=== PATIENT | male | born 1945 | race Caucasian/White ===

== ENCOUNTER 2019-08-11 12:54 | Inpatient (IN) ==
[2019-08-11] MEDS ORDERED: 0.9 % Sodium Chloride 1,000 ML IVC ONE ×2 (13:33→14:13)
[2019-08-11] MEDS ORDERED: *HR* Metoprolol 5 MG/5 ML VIAL IVP ONE (13:35)
[2019-08-11 13:55] LABS: Basophils # 0.1 K/mcL (0.0-0.2); Basophils % 0.7 %; Eosinophils # 0.1 K/mcL (0.0-0.6); Eosinophils % 0.7 %; Hematocrit 42.9 % (37.5-50.1); Hemoglobin 14.4 g/dL (12.9-16.9); Immature Granulocytes % 0.2 % (0-4); Lymphocytes # 2.8 K/mcL (0.6-4.6); Mean Corpuscular HGB Conc 33.6 g/dL (31.6-35.5); Mean Corpuscular Hemoglobin 33.2 pg (28.0-33.3); Mean Corpuscular Volume 98.8 fL (83.0-100.0); Mean Platelet Volume 11.6 fL (9.4-12.4); Monocytes # 0.7 K/mcL (0.0-1.3); Monocytes % 7.8 %; Neutrophils # 4.8 K/mcL (1.6-8.9); Platelet Count 174 K/mcL (140-400); Red Blood Count 4.34 M/mcL (4.19-5.50); Red Cell Distribution Width 16.3 % (11.5-14.5); Segmented Neutrophils % 57.6 %; White Blood Count 8.4 K/mcL (4.3-11.1)
[2019-08-11 14:17] LABS: BUN/Creatinine Ratio 31 (6-26); Blood Urea Nitrogen 34 mg/dL (8-23); Calcium 9.2 mg/dL (8.6-10.3); Carbon Dioxide 24 mEq/L (23-29); Chloride 105 mEq/L (98-107); Glucose 87 mg/dL (70-105); Osmolality,Calculated 295 (280-300); Potassium 4.3 mEq/L (3.5-5.1); Sodium 139 mEq/L (136-145); eGFR For African Americans > 60 (> 60); eGFR For Non-African Americans > 60 (> 60)
[2019-08-11 14:24] LABS: Thyroid Stimulating Hormone 2.183 mcIU/mL (0.340-5.600)
[2019-08-11] MEDS ORDERED: Isovue-370 500 ML BOTTLE IVP ONE (14:25)
--- NOTE | 2019-08-11 15:39 | Emergency Department Note ---
Disposition Clinical Impression: Lung mass Atrial flutter Qualifiers: Atrial flutter type: unspecified Qualified Code(s): I48.92 - Unspecified atrial flutter Disposition: Admitted As Inpatient Condition: Fair Referrals: Steve Casey MD [Primary Care Provider] - Forms: ED Satisfaction Letter Time of Disposition: 16:31 General Adult HPI - General Chief complaint: ED Arrhythmia/Palpitations Stated complaint: abnormal EKG Time Seen by Provider: 08/11/19 13:23 Source: patient Limitations: no limitations Nursing Notes Reviewed: Yes Vital Signs Reviewed: Yes - History of Present Illness HPI Narrative: 73-year-old male since emergency room for elevated heart rate. Patient had gone to his doctor today with concerns for some possible sinus infection. They noticed him to be extremely tachycardic and sent to the ER. He has no history of any A. fib or any a flutter. He has no history of cardiac disease. No history DVT or PE. He denies any other complaints at this time. He denies any palpitations or chest pain or any shortness of breath. No long travels in a car plane recently. Pain Scale: 0 - Related Data Home Medications Medication Instructions Recorded Confirmed Aspirin [Lo-Dose Aspirin EC] 81 mg PO DAILY 08/11/19 08/11/19 Fluticasone Propionate [Flovent 50 mcg IH DAILY 08/11/19 08/11/19 Diskus] Lisinopril [Zestril] 10 mg PO DAILY 08/11/19 08/11/19 Loratadine [Claritin] 10 mg PO DAILY 08/11/19 08/11/19 Montelukast [Singulair] 10 mg PO DAILY 08/11/19 08/11/19 Polyethylene Glycol [Polyox 1 gm MC DAILY 08/11/19 08/11/19 [id number]] Simvastatin [Zocor] 40 mg PO HS 08/11/19 08/11/19 Tizanidine HCl [Zanaflex] 2 mg PO TID 08/11/19 08/11/19 Vitamin B Complex/Folic Acid 0.4 mg PO DAILY 08/11/19 08/11/19 [Super B Maxi Complex Caplet] Allergies Allergy/AdvReac Type Severity Reaction Status Date / Time No Known Allergies Allergy Verified 08/11/19 13:49 All systems ED: reviewed and negative except as stated. Constitutional: Reports: as per HPI. Denies: fever ENT ED: Reports: congestion Cardiovascular: Reports: as per HPI Respiratory: Reports: as per HPI Gastrointestinal: Reports: as per HPI Genitourinary: Reports: as per HPI Musculoskeletal: Reports: as per HPI Integumentary: Reports: as per HPI Neurological: Reports: as per HPI Psychiatric: Reports: as per HPI Endocrine: Reports: as per HPI Past Medical History - Past Medical History Medical history: Reports: hyperlipidemia, hypertension Psychiatric history: Reports: no psych history - Social History Smoking Status: Current every day smoker Alcohol use: Reports: heavy Drug use: Reports: none Physical Exam - General Limitations: no limitations General appearance: alert, in no apparent distress - Head Head exam: atraumatic, normocephalic - Neck Neck exam: Present: normal inspection - Chest Chest inspection: Present: normal inspection - Respiratory Respiratory exam: Present: normal lung sounds bilaterally - Cardiovascular Cardiovascular exam: Present: normal rhythm, tachycardia - Abdominal Exam Abdominal exam: Present: soft, Non-Tender, normal bowel sounds - Extremities Exam Extremities exam: Present: normal inspection. Absent: tenderness - Expanded Lower Extremity Exam Hip/Pelvis exam: Present: normal inspection - Neurological Exam Neurological exam: Present: alert, oriented X3 - Psychiatric Psychiatric exam: Present: normal affect, normal mood - Skin Skin exam: Present: warm, dry, intact Course Vital Signs Temperature 98.1 F 08/11/19 13:19 Pulse Rate 162 08/11/19 13:19 Respiratory Rate 18 08/11/19 13:19 Blood Pressure 116/89 08/11/19 13:19 O2 Sat by Pulse Oximetry 97 08/11/19 13:19 Temperature 98.1 F 08/11/19 13:19 Pulse Rate 153 08/11/19 15:42 Respiratory Rate 18 08/11/19 15:42 Blood Pressure 119/90 08/11/19 15:42 O2 Sat by Pulse Oximetry 96 08/11/19 15:42 Oxygen Delivery Oxygen Delivery Room Air Medical Decision Making - MDM Narrative Medical decision making narrative: Patient did not respond any 5 mg of Lopressor. Heart rate remained elevated. His blood pressure did drop. We have given him some IV fluids. Troponin was slightly elevated as well as a very high d-dimer. CT of the chest showed no evidence of PE however he does have a right infrahilar mass that is consistent and concerning for lung cancer as a primary site. The mass is approximately 3.5 x 3 cm and seems to be encasing part of the bronchus as well as the segmental pulmonary artery in that region. I did consult with cardiothoracic surgery who will see the patient in consultation. The hospitalist has accepted the patient. We will start him on a heparin drip and Cardizem drip. He did not respond well to the IV Lopressor. This sort of dropped his blood pressure that he is now responded to after fluids. He has no active chest pain. Patient is a history of smoking. CT also shows evidence of emphysema. - Medical Records Medical records reviewed: Yes I reviewed the patient's medical records. - Lab Data Lab results reviewed: Yes I reviewed the patient's lab results. Result diagrams: 08/11/19 13:33 08/11/19 13:33 Lab Results 08/11/19 08/11/19 08/11/19 Range/Units 13:33 13:33 13:33 WBC 8.4 (4.3-11.1) K/mcL RBC 4.34 (4.19-5.50) M/mcL Hgb 14.4 (12.9-16.9) g/dL Hct 42.9 (37.5-50.1) % MCV 98.8 (83.0-100.0) fL MCH 33.2 (28.0-33.3) pg MCHC 33.6 (31.6-35.5) g/dL RDW 16.3 H (11.5-14.5) % Plt Count 174 (140-400) K/mcL MPV 11.6 (9.4-12.4) fL Immature Gran % 0.2 (0-4) % Seg Neutrophils % 57.6 % Lymphocytes % 33.0 % Monocytes % 7.8 % Eosinophils % 0.7 % Basophils % 0.7 % Neutrophils # 4.8 (1.6-8.9) K/mcL Lymphocytes # 2.8 (0.6-4.6) K/mcL Monocytes # 0.7 (0.0-1.3) K/mcL Eosinophils # 0.1 (0.0-0.6) K/mcL Basophils # 0.1 (0.0-0.2) K/mcL D-Dimer 4349 H (0-500) ng/mLFEU Sodium 139 (136-145) mEq/L Potassium 4.3 (3.5-5.1) mEq/L Chloride 105 (98-107) mEq/L Carbon Dioxide 24 (23-29) mEq/L BUN 34 H (8-23) mg/dL Creatinine 1.09 (0.70-1.30) mg/dL Est GFR ( Amer) > 60 (> 60) Est GFR (Non-Af Amer) > 60 (> 60) BUN/Creatinine Ratio 31 H (6-26) Glucose 87 (70-105) mg/dL Calculated Osmolality 295 (280-300) Calcium 9.2 (8.6-10.3) mg/dL Magnesium 2.0 (1.6-2.6) mg/dL Troponin I (< 0.04) ng/mL TSH 2.183 (0.340-5.600) mcIU/mL 08/11/19 Range/Units 13:33 WBC (4.3-11.1) K/mcL RBC (4.19-5.50) M/mcL Hgb (12.9-16.9) g/dL Hct (37.5-50.1) % MCV (83.0-100.0) fL MCH (28.0-33.3) pg MCHC (31.6-35.5) g/dL RDW (11.5-14.5) % Plt Count (140-400) K/mcL MPV (9.4-12.4) fL Immature Gran % (0-4) % Seg Neutrophils % % Lymphocytes % % Monocytes % % Eosinophils % % Basophils % % Neutrophils # (1.6-8.9) K/mcL Lymphocytes # (0.6-4.6) K/mcL Monocytes # (0.0-1.3) K/mcL Eosinophils # (0.0-0.6) K/mcL Basophils # (0.0-0.2) K/mcL D-Dimer (0-500) ng/mLFEU Sodium (136-145) mEq/L Potassium (3.5-5.1) mEq/L Chloride (98-107) mEq/L Carbon Dioxide (23-29) mEq/L BUN (8-23) mg/dL Creatinine (0.70-1.30) mg/dL Est GFR ( Amer) (> 60) Est GFR (Non-Af Amer) (> 60) BUN/Creatinine Ratio (6-26) Glucose (70-105) mg/dL Calculated Osmolality (280-300) Calcium (8.6-10.3) mg/dL Magnesium (1.6-2.6) mg/dL Troponin I 0.06 H* (< 0.04) ng/mL TSH (0.340-5.600) mcIU/mL - Radiology Data Radiology results reviewed: Yes I reviewed the patient's radiology results. - EKG Data EKG #1 EKG attestation: Yes I reviewed and interpreted this EKG. EKG results narrative: Rate of 162. Questionable a flutter versus sinus tachycardia. OR 64. QRS 143. QTC 544. No ST segment abnormalities. Critical Care Time Critical Care Time: Yes Total Critical Care Time: 45 Attestation: Critical care time spent in consultation with cardiothoracic surgery as well as hospitalist and cardiac management
[2019-08-11] MEDS ORDERED: Heparin 25,000 UNIT/250 ML D5W 25,000 UNIT/250 ML IV.SOLN IVC SCH (16:30)
[2019-08-11] MEDS ORDERED: *HR* Heparin 5,000 UNIT/ML VIAL IVP PRN ×2 (16:30)
[2019-08-11] MEDS ORDERED: *HR* Heparin 5,000 UNIT/ML VIAL IVP ONE (16:30)
--- NOTE | 2019-08-11 16:54 | Internal Med History&Physical ---
Date of Encounter: 08/11/19 Time of Encounter: 16:32 Internal Medicine - H&P: HPI Chief complaint: Tachycardia Admitted From: Emergency Dept History of present illness: Gerardo Whittaker is a 73 M w hx HTN, HLD, COPD, smoker, who presents from PCP office for tachycardia. Patient went to PCP office today for concern for sinus problems. States he went to a family reunion 8 days ago and spent most of the day outside. He's been told he has COPD and is always a bit SOB with exertion, but noticed he was a bit more SOB than usual at the reunion. He says he also began to have sinus pressure behind his eyes, with nasal congestion and dripping, but he also says he's been lightheaded in the last week. He says his PCP started claritin and singulair along with flonase, but at follow up appointment today he had a fast heart rate and was sent to ED. In the ED, pt vitals T98.1, HR 160, RR 18, SBP 100-110s, satting 95+% on RA. ECG shows regular narrow complex tachycardia HR 160. CXR unremarkable. Labs notable for WBC 8, Hb 14, Plt 175, Cr 1.1, trop 0.06, D-dimer 4400. CTPE negative for embolism but shows R infrahilar mass suspicious for malignancy. Patient given NS 2L bolus, lopressor 5 ivp x1, and started on cardizem gtt. Past medical, surgical, social, and family histories reviewed and updated as below. Last surgery was hip replacement 2007, prior to which he had LHC without need for stent. Lifelong 1-1.5ppd smoker. No FHx SC or CVA. Past Med Surg Social Fam HX - Past Medical History Medical history: hyperlipidemia, hypertension Psychiatric history: no psych history - Social History Smoking Status: Current every day smoker Alcohol use: heavy Drug use: none Internal Medicine - H&P: Meds Aspirin [Lo-Dose Aspirin EC] 81 mg PO DAILY 08/11/19 [History] Fluticasone Propionate Nasal [Flonase] 50 mcg NS DAILY 08/11/19 [History] Lisinopril [Zestril] 10 mg PO DAILY 08/11/19 [History] Loratadine [Claritin] 10 mg PO DAILY 08/11/19 [History] Montelukast [Singulair] 10 mg PO DAILY 08/11/19 [History] Polyethylene Glycol 3350 [MiraLAX] 17 gm PO DAILY 08/11/19 [History] Simvastatin [Zocor] 40 mg PO HS 08/11/19 [History] Tizanidine HCl [Zanaflex] 2 mg PO TID PRN 08/11/19 [History] Vitamin B Complex [Balanced B-50] 1 each PO DAILY 08/11/19 [History] Allergy/AdvReac Type Severity Reaction Status Date / Time No Known Allergies Allergy Verified 08/11/19 13:49 All Systems PM: A 10-system review of systems was performed and is negative for pertinent findings except as documented above in the HPI. - Constitutional Vitals: Temp Pulse Resp BP Pulse Ox 98.1 F 153 18 119/90 96 08/11/19 13:19 08/11/19 15:42 08/11/19 15:42 08/11/19 15:42 08/11/19 15:42 Exam: General: NAD, good eye contact, relatively well appearing Head: Atraumatic, normocephalic. Face symmetric Eyes: EOMI, sclerae anicteric ENT: Mucous membranes moist. Normal oral mucosa. Trachea midline. Thoracic: No visible chest wall deformities. Normal breath sounds b/l, no wheezing or crackles Cardio: Normal S1 and S2, regular rate but very tachycardic Abdomen: Soft, nontender, nondistended. Extremities: Warm, well perfused. DP pulses 2+ b/l. No clubbing, cyanosis. No edema Skin: Intact. No rashes, bruises, or ulcers Neuro: Awake, fully oriented. Good memory, concentration, attention. Speech fluent. CN II-XII grossly intact. Strength 5/5 in b/l UE and LE Internal Med - H&P Results - Labs CBC & Chem 7: 08/11/19 16:30 08/11/19 13:33 Labs: Short CBC 08/11/19 Range/Units 13:33 WBC 8.4 (4.3-11.1) K/mcL Hgb 14.4 (12.9-16.9) g/dL Hct 42.9 (37.5-50.1) % Plt Count 174 (140-400) K/mcL Neutrophils # 4.8 (1.6-8.9) K/mcL BMP 08/11/19 13:33 Sodium 139 Potassium 4.3 Chloride 105 Carbon Dioxide 24 BUN 34 H Creatinine 1.09 Glucose 87 Calcium 9.2 Cardiac Enzymes 08/11/19 Range/Units 13:33 Troponin I 0.06 H* (< 0.04) ng/mL - Impressions ITS Impressions Chest X-Ray 08/11/19 13:45 IMPRESSION: Minimal bibasilar airspace disease, likely atelectasis in the absence of clinical signs of pneumonia. D/ / Estefani Luna MD / Estefani Luna MD Interpreting Provider: Estefani Luna MD Chest CTA 08/11/19 15:45 IMPRESSION: 1. No evidence of pulmonary embolism 2. No acute process demonstrated 3. Right infrahilar mass concerning for primary pulmonary malignancy 4. Pulmonary emphysema D/ / Keaton Finley MD / Keaton Finley MD Interpreting Provider: Keaton Finley MD - Summary of Assessment and Plan Summary of Assessment and Plan: Gerardo Whittaker is a 73 M w hx HTN, HLD, COPD, smoker, who p/w regular tachycardia concerning for SVT. SVT: regular around 155-160 concerning for AFL w 2:1 block, no response to single lopressor dose but did have hypotension - continue diltiazem gtt, currently at 5/hr w HR still 150s and SBP is now 130s so will increase gtt - hep gtt - TTE if HR improves Lung mass: - Onc consult Elevated trop: likely 2/2 demand from tachycardia - trend trops COPD: emphysema on CT, not on home inhalers or home O2 HTN: home lisinopril 10 HLD: hold simvastatin while on dilt, home ASA Allergies: home claritin, singulair Smoker: nicotine replacement offered, cessation advised PPx: lovenox Tele: yes Activity: up ad david FEN: regular, no MIVF Lines: PIV Consults: Cardio Code: Full Dispo: obs for SVT eval and management at this time and will need outpatient follow up arranged for lung mass, anticipate 1-2 days, will be homegoing
[2019-08-11 17:12] LABS: Hematocrit 37.8 % (37.5-50.1); Mean Corpuscular HGB Conc 33.6 g/dL (31.6-35.5); Mean Corpuscular Hemoglobin 33.7 pg (28.0-33.3); Mean Corpuscular Volume 100.3 fL (83.0-100.0); Mean Platelet Volume 11.3 fL (9.4-12.4); Platelet Count 150 K/mcL (140-400); Red Blood Count 3.77 M/mcL (4.19-5.50); Red Cell Distribution Width 16.3 % (11.5-14.5); White Blood Count 7.5 K/mcL (4.3-11.1)
[2019-08-11 17:15] LABS: Hemoglobin 12.7 g/dL (12.9-16.9)
[2019-08-11 17:20] LABS: INR 0.9; Prothrombin Time 10.4 Seconds (9.4-12.1)
[2019-08-11] MEDS ORDERED: Acetaminophen 325 MG TABLET PO PRN (17:43)
[2019-08-11] MEDS ORDERED: Ondansetron 4 MG/2 ML VIAL IVP PRN (17:43)
[2019-08-11] MEDS ORDERED: Naloxone 0.4 MG/ML INJ IVP PRN (17:43)
[2019-08-12] MEDS ORDERED: Amiodarone Premix 150 MG/100 ML BAG IVPB ONE (00:39)
[2019-08-12] MEDS ORDERED: Amiodarone Premix 360 MG/200 ML BAG IVC ONE (00:39)
[2019-08-12 01:08] LABS: Hematocrit 35.7 % (37.5-50.1); Mean Corpuscular HGB Conc 33.6 g/dL (31.6-35.5); Mean Corpuscular Hemoglobin 33.7 pg (28.0-33.3); Mean Corpuscular Volume 100.3 fL (83.0-100.0); Mean Platelet Volume 11.9 fL (9.4-12.4); Platelet Count 149 K/mcL (140-400); Red Blood Count 3.56 M/mcL (4.19-5.50); Red Cell Distribution Width 16.1 % (11.5-14.5); White Blood Count 9.1 K/mcL (4.3-11.1)
[2019-08-12 01:22] LABS: BUN/Creatinine Ratio 33 (6-26); Blood Urea Nitrogen 32 mg/dL (8-23); Calcium 8.5 mg/dL (8.6-10.3); Carbon Dioxide 19 mEq/L (23-29); Chloride 106 mEq/L (98-107); Chol/HDL Ratio 1.8 (0-4.9); Cholesterol 157 mg/dL (< 200); Glucose 83 mg/dL (70-105); HDL Cholesterol 85 mg/dL (40-59); LDL Cholesterol,Calculated 64 mg/dL (0-99); Magnesium 1.7 mg/dL (1.6-2.6); Osmolality,Calculated 296 (280-300); Potassium 4.6 mEq/L (3.5-5.1); Sodium 140 mEq/L (136-145); Triglycerides 42 mg/dL (< 150); eGFR For African Americans > 60 (> 60); eGFR For Non-African Americans > 60 (> 60)
[2019-08-12 01:32] LABS: Troponin I 0.05 ng/mL (< 0.04)
[2019-08-12] MEDS ORDERED: Ondansetron 4 MG/2 ML VIAL IVP PRN (06:11)
[2019-08-12] MEDS ORDERED: Naloxone 0.4 MG/ML INJ IVP PRN (06:11)
[2019-08-12] MEDS ORDERED: *HR* Heparin 5,000 UNIT/ML VIAL IVP PRN (06:11)
[2019-08-12] MEDS ORDERED: Acetaminophen 325 MG TABLET PO PRN (06:11)
[2019-08-12] MEDS: Amiodarone Premix 360 MG/200 ML BAG IVC SCH ×2 (07:37→19:53)
[2019-08-12] MEDS: Heparin 25,000 UNIT/250 ML D5W 25,000 UNIT/250 ML IV.SOLN IVC SCH ×2 (07:38→12:26)
--- NOTE | 2019-08-12 08:05 | Internal Med Progress Note ---
Hospitalist Progress Note - Encounter Date of Encounter: 08/12/19 Time of Encounter: 08:02 - Subjective Interval History: Gerardo Whittaker is a 73 M w hx HTN, HLD, COPD, smoker, who presents from PCP office for tachycardia. Patient went to PCP office today for concern for sinus problems. States he went to a family reunion 8 days ago and spent most of the day outside. He's been told he has COPD and is always a bit SOB with exertion, but noticed he was a bit more SOB than usual at the reunion. He says he also began to have sinus pressure behind his eyes, with nasal congestion and dripping, but he also says he's been lightheaded in the last week. He says his PCP started claritin and singulair along with flonase, but at follow up appointment today he had a fast heart rate and was sent to ED. In the ED, pt vitals T98.1, HR 160, RR 18, SBP 100-110s, satting 95+% on RA. ECG shows regular narrow complex tachycardia HR 160. CXR unremarkable. Labs notable for WBC 8, Hb 14, Plt 175, Cr 1.1, trop 0.06, D-dimer 4400. CTPE negative for embolism but shows R infrahilar mass suspicious for malignancy. Patient given NS 2L bolus, lopressor 5 ivp x1, and started on cardizem gtt. Past medical, surgical, social, and family histories reviewed and updated as below. Last surgery was hip replacement 2007, prior to which he had LHC without need for stent. Lifelong 1-1.5ppd smoker. No FHx NM or CVA. 08/12: Pt has persistent heart rate in the 150s. He denies any chest pain or shortness of breath. No nausea or vomiting. No fevers or chills. Patient was placed on an amiodarone drip overnight as well as a heparin drip. EKG shows what looks like a flutter with 2:1 conduction. Other than that mentioned above a 10 point review of systems is negative - Exam Vitals: Temp Pulse Resp BP Pulse Ox 97.9 F 153 20 126/90 95 08/12/19 07:43 08/12/19 08:00 08/12/19 08:00 08/12/19 08:00 08/12/19 08:00 Exam: General: NAD, good eye contact, relatively well appearing, nonntoxic Head: Atraumatic, normocephalic. Face symmetric Eyes: EOMI, sclerae anicteric ENT: Mucous membranes moist. Normal oral mucosa. Trachea midline. Thoracic: No visible chest wall deformities. Normal breath sounds b/l, no wheezing or crackles Cardio: Normal S1 and S2, tachycardic Abdomen: Soft, nontender, nondistended. Extremities: Warm, well perfused. DP pulses 2+ b/l. No clubbing, cyanosis. No edema Skin: Intact. No rashes, bruises, or ulcers Neuro: Awake, fully oriented. Good memory, concentration, attention. Speech fluent. CN II-XII grossly intact. Strength 5/5 in b/l UE and LE - Summary of Assessment and Plan Summary of Assessment and Plan: Gerardo Whittaker is a 73 M w hx HTN, HLD, COPD, smoker, who p/w regular tachycardia concerning for SVT. SVT: regular around 155-160 concerning for AFL w 2:1 block, no response to single lopressor dose but did have hypotension -cardizem drip off - hep gtt - TTE if HR improves 08/12: Patient has persistent tachycardia, with what appears to be atrial flutter with a 2-1 conduction. Now on amiodarone drip as well as a heparin drip. Cardiology will be consulted- I discussed the case with them Blood pressure remains stable Lung mass: - Onc consult Elevated trop: likely 2/2 demand from tachycardia - trend trops COPD: emphysema on CT, not on home inhalers or home O2 -stable HTN: home lisinopril 10 -will hold ROBERT for now in case poss procedure HLD: hold simvastatin while on dilt, home ASA Allergies: home claritin, singulair Smoker: nicotine replacement offered, cessation advised PPx: -on heparin drip Tele: yes Activity: up ad david FEN: regular, no MIVF Lines: PIV Consults: Cardio Code: Full Dispo: obs for SVT eval and management at this time and will need outpatient follow up arranged for lung mass, anticipate 1-2 days, will be homegoing - Time Spent with Patient Total time spent is greater than 50% in coordination of care (as documented) at patient's floor/unit and/or counseling patient: Greater than 35 minutes Internal Medicine: Result - Labs CBC & Chem 7: 08/12/19 00:26 08/12/19 00:26 Labs: Short CBC 08/11/19 08/11/19 08/12/19 Range/Units 13:33 16:30 00:26 WBC 8.4 7.5 9.1 (4.3-11.1) K/mcL Hgb 14.4 12.7 L D 12.0 L (12.9-16.9) g/dL Hct 42.9 37.8 35.7 L (37.5-50.1) % Plt Count 174 150 149 (140-400) K/mcL Neutrophils # 4.8 (1.6-8.9) K/mcL BMP 08/11/19 08/12/19 13:33 00:26 Sodium 139 140 Potassium 4.3 4.6 Chloride 105 106 Carbon Dioxide 24 19 L BUN 34 H 32 H Creatinine 1.09 0.98 Glucose 87 83 Calcium 9.2 8.5 L Cardiac Enzymes 08/11/19 08/12/19 Range/Units 13:33 00:26 Troponin I 0.06 H* 0.05 H* (< 0.04) ng/mL - ABG Interpretation ABG results: PT/INR, D-dimer PT 10.4 Seconds (9.4-12.1) 08/11/19 16:30 D-Dimer 4349 ng/mLFEU (0-500) H 08/11/19 13:33 - Impressions Impressions Chest X-Ray 08/11/19 13:45 IMPRESSION: Minimal bibasilar airspace disease, likely atelectasis in the absence of clinical signs of pneumonia. D/ / Estefani Luna MD / Estefani Luna MD Interpreting Provider: Estefani Luna MD Chest CTA 08/11/19 15:45 IMPRESSION: 1. No evidence of pulmonary embolism 2. No acute process demonstrated 3. Right infrahilar mass concerning for primary pulmonary malignancy 4. Pulmonary emphysema D/ / Keaton Finley MD / Keaton Finley MD Interpreting Provider: Keaton Finley MD Consult Discharge Plan - Plan Referrals: Steve Casey MD [Primary Care Provider] -
[2019-08-12] MEDS ORDERED: Aspirin Enteric Coated 81 MG Tablet PO SCH (09:00)
[2019-08-12] MEDS ORDERED: Fluticasone Propionate Nasal 50 MCG/SPRAY BOTTLE NS SCH (09:00)
[2019-08-12] MEDS ORDERED: Loratadine 10 MG TABLET PO SCH (09:00)
[2019-08-12] MEDS: Loratadine 10 MG TABLET PO SCH (10:15)
[2019-08-12] MEDS: Aspirin Enteric Coated 81 MG Tablet PO SCH (10:15)
[2019-08-12] MEDS: Fluticasone Propionate Nasal 50 MCG/SPRAY BOTTLE NS SCH (10:15)
[2019-08-12] MEDS ORDERED: Glycopyrrolate 0.2 MG/ML VIAL ONE (13:57)
--- NOTE | 2019-08-12 14:07 | Cardiology Consult Note ---
<Dante Guido M - Last Filed: 08/12/19 15:27> Date of Encounter: 08/12/19 Time of Encounter: 10:00 Assessment and Plan (1) SVT (supraventricular tachycardia) Current Visit: Yes Status: Acute The patient presents with acute onset SVT, HR 150's concerning for Atrial flutter with 2:1 block. Patient is currently asymptomatic and hemodynamically stable. Was started on Cardizem gtt with no improvement. Given one dose IV lopressor and no improvement in HR but he did develop transient hypotension. Therefore, patient was switched to amiodorone gtt, still no improvement in HR but BP has been stable. Patient denies CP/palpitations/SOB at this time. Troponins were mildly elevated on admission, 0.06-->0.05, likely demand ischemia in setting of SVT. Etiology of acute onset SVT not responsive to medications likely 2/2 incidental finding on CTPE of a lung mass. Plan: Continue Heparin drip NPO for Cardioversion today Continue Amiodorone gtt for now Continue Telemetry and closely monitor BP/HR Discussion w patient/family: The assessment and plan as outlined above was discussed with the patient and/or family members who expressed understanding and agreement. All questions were answered. Thank you for involving us in the care of your patient. Please call with any questions. History of Present Illness History of present illness: Mr. Whittaker is a 73 year old male w hx HTN, HLD, COPD, smoker, who p/w regular tachycardia concerning for SVT. Patient presents from his PCP who was seeing the patient regarding recent sinus problems and SOB. Patient has baseline SOB on exertion 2/2 COPD but reports it has recently been worse than usual. Was additionally complaining of sinus pressure/pain and nasal congestion in addition to some lightheadedness earlier in the week. Patient was started on claritin, singulair, and flonase, but at follow up appointment last night he had rapid heart rate and was sent to the ED. In the ED, pt vitals T98.1, HR 160, RR 18, SBP 100-110s, satting 95+% on RA. ECG shows regular narrow complex tachycardia HR 160. CXR unremarkable. Labs notable for WBC 8, Hb 14, Plt 175, Cr 1.1, trop 0.06, D-dimer 4400. CTPE negative for embolism but shows R infrahilar mass suspicious for malignancy. Patient given NS 2L bolus, lopressor 5 ivp x1, and started on cardizem gtt. The patients HR was still uncontrolled on the cardizem drip. IV lopressor x1 was used w/o repsonse in HR but did develop some hypotension. The patient was switched to Amiodorone gtt and still no repsonse in HR. The rhythm is concerning for Atrial flutter with 2:1 block given HR stable around 150. Patient did have incidental finding of a lung mass which could have precipitated his conversion to SVT. Past Med Surg Social Fam HX - Past Medical History Medical history: hyperlipidemia, hypertension Psychiatric history: no psych history - Social History Smoking Status: Current every day smoker Alcohol use: heavy Drug use: none Medications and Allergies Aspirin [Lo-Dose Aspirin EC] 81 mg PO DAILY 08/11/19 [History] Fluticasone Propionate Nasal [Flonase] 50 mcg NS DAILY 08/11/19 [History] Lisinopril [Zestril] 10 mg PO DAILY 08/11/19 [History] Loratadine [Claritin] 10 mg PO DAILY 08/11/19 [History] Montelukast [Singulair] 10 mg PO DAILY 08/11/19 [History] Polyethylene Glycol 3350 [MiraLAX] 17 gm PO DAILY 08/11/19 [History] Simvastatin [Zocor] 40 mg PO HS 08/11/19 [History] Tizanidine HCl [Zanaflex] 2 mg PO TID PRN 08/11/19 [History] Vitamin B Complex [Balanced B-50] 1 each PO DAILY 08/11/19 [History] Allergy/AdvReac Type Severity Reaction Status Date / Time No Known Allergies Allergy Verified 08/11/19 13:49 All Systems Review: The remainder of the systems were reviewed and are negative Physical Examination Vital Signs, Last 4 Hours Temp Pulse Resp BP Pulse Ox 08/12/19 13:00 153 20 131/102 95 08/12/19 12:00 156 24 141/110 93 08/12/19 11:53 98.3 F 08/12/19 11:00 154 24 114/81 93 Other: General: NAD, good eye contact, relatively well appearing Head: Atraumatic, normocephalic. Face symmetric Eyes: EOMI, sclerae anicteric ENT: Mucous membranes moist. Normal oral mucosa. Trachea midline. Thoracic: No visible chest wall deformities. Normal breath sounds b/l, no wheezing or crackles Cardio: Normal S1 and S2, tachycardic but regular rhythm Abdomen: Soft, nontender, nondistended. Extremities: Warm, well perfused. DP pulses 2+ b/l. No clubbing, cyanosis. No edema Skin: Intact. No rashes, bruises, or ulcers Neuro: no focal deficits, strength/sensation intact, oriented and alert Results 08/12/19 00:26 08/12/19 00:26 Lab Results 08/11/19 08/11/19 08/11/19 13:33 13:33 13:33 WBC Hgb Hct Plt Count INR D-Dimer 4349 H Sodium 139 Potassium 4.3 Chloride 105 Carbon Dioxide 24 BUN 34 H Creatinine 1.09 Glucose 87 Calcium 9.2 Magnesium 2.0 Troponin I 0.06 H* B-Natriuretic Peptide TSH 2.183 08/11/19 08/11/19 08/12/19 16:30 16:30 00:26 WBC 7.5 9.1 Hgb 12.7 L D 12.0 L Hct 37.8 35.7 L Plt Count 150 149 INR 0.9 D-Dimer Sodium Potassium Chloride Carbon Dioxide BUN Creatinine Glucose Calcium Magnesium Troponin I B-Natriuretic Peptide TSH 08/12/19 08/12/19 00:26 00:26 WBC Hgb Hct Plt Count INR D-Dimer Sodium 140 Potassium 4.6 Chloride 106 Carbon Dioxide 19 L BUN 32 H Creatinine 0.98 Glucose 83 Calcium 8.5 L Magnesium 1.7 Troponin I 0.05 H* B-Natriuretic Peptide 296 H TSH Consult Discharge Plan - Plan Referrals: Steve Casey MD [Primary Care Provider] - < A - Last Filed: 08/12/19 21:05> Date of Encounter: 08/12/19 - Attending Attestation I have personally performed a face to face evaluation on this patient. I have reviewed and agree with the documented findings and care plan as documented by the resident. History and Exam by me shows: 73 y/o pleasant gentleman with history of HTN, HLD, COPD, smoker admitted for atrial flutter and found to have a right lung mass on CT scan AAOX3 in NAD at the bedside Hemodynamically stable Cardiopulmonary exam revealed S1, S2, no murmur; clear lungs Rhythm reviewed - atrial flutter at around 150/min Echo pending Impression/plan: Atrial flutter with 2:1 block not responsive to amio drip and cardizem -therapeutic on IV heparin -recommend SAHIL/DCCV Thanks for the consult, please call with questions. Huber Nunn MD [facility] Assessment and Plan Discussion w patient/family: The assessment and plan as outlined above was discussed with the patient and/or family members who expressed understanding and agreement. All questions were answered. Thank you for involving us in the care of your patient. Please call with any questions. History of Present Illness History of present illness: Mr. Whittaker is a 73 year old male All Systems Review: The remainder of the systems were reviewed and are negative Physical Examination Vital Signs, Last 4 Hours Pulse Resp BP Pulse Ox 08/12/19 18:00 149 22 108/90 95 08/12/19 17:00 149 24 119/97 92 Results 08/12/19 00:26 08/12/19 00:26 Lab Results 08/12/19 08/12/19 08/12/19 00:26 00:26 00:26 WBC 9.1 Hgb 12.0 L Hct 35.7 L Plt Count 149 Sodium 140 Potassium 4.6 Chloride 106 Carbon Dioxide 19 L BUN 32 H Creatinine 0.98 Glucose 83 Calcium 8.5 L Magnesium 1.7 Troponin I 0.05 H* B-Natriuretic Peptide 296 H
--- NOTE | 2019-08-12 14:33 | Oncology Inp Consult Note ---
<Vicky Adhikari - Last Filed: 08/12/19 13:55> Date of Encounter: 08/12/19 Time of Encounter: 12:00 Assessment and Plan (1) Lung mass Status: Acute Assessment and plan: Right infrahilar mass 3.5 x 3.0 cm encasing the medial basilar segmental pulmonary artery and bronchus, narrowing the bronchus, and partially encasing the lower lobe bronchus. Plan: Recommend biopsy once stable from cardiac standpoint. Cardiology on board: appreciate recommendations - Data of Consult Patient: new to practice Consult date: 08/11/19 Requesting Physician: Dwight Diaz Primary Care Provider: Steve Casey MD - Consult Narrative Reason for consult: newly identified infrahilar mass History of present illness: Gerardo Whittaker, a 73yo male, was directed to the ED from his PCP office due to elevated heart rate. He had gone for follow-up for a sinus infe ction, but was noted to have HR 150-160s. CTA chest in the ED noted a infrahilar mass. He is currently admitted to the ICU and is on amiodarone and heparin drips. His cardiac monitoring notes HR 150s. He notes that he began with facial edema, shortness of breath, and sinus infection eight days ago. He denies productive cough, chest pain, or palpitations. He denies weight loss, but his notes decreased appetite and early satiety for the past one to two weeks. Oncology was consulted on 08/11/19 for the right infrahilar mass 3.5 x 3.0 cm encasing the medial basilar segmental pulmonary artery and bronchus, narrowing the bronchus, and partially encasing the lower lobe bronchus. Medical history: HTN HLD COPD Social history: , lives in [place] 3 children: 1 in [place], 1 in [place], 1 near [place] Retired from [employer] Smokes 1-1.5 ppd cigarettes Drinks 3 alcoholic beverages (whiskey) per day Denies illicit drug use Past Med Surg Social Fam HX - Past Medical History Medical history: hyperlipidemia, hypertension Psychiatric history: no psych history - Past Surgical History Surgical History: hip replacement (right hip ) - Social History Smoking Status: Current every day smoker Alcohol use: heavy Drug use: none Medications and Allergies Aspirin [Lo-Dose Aspirin EC] 81 mg PO DAILY 08/11/19 [History] Fluticasone Propionate Nasal [Flonase] 50 mcg NS DAILY 08/11/19 [History] Lisinopril [Zestril] 10 mg PO DAILY 08/11/19 [History] Loratadine [Claritin] 10 mg PO DAILY 08/11/19 [History] Montelukast [Singulair] 10 mg PO DAILY 08/11/19 [History] Polyethylene Glycol 3350 [MiraLAX] 17 gm PO DAILY 08/11/19 [History] Simvastatin [Zocor] 40 mg PO HS 08/11/19 [History] Tizanidine HCl [Zanaflex] 2 mg PO TID PRN 08/11/19 [History] Vitamin B Complex [Balanced B-50] 1 each PO DAILY 08/11/19 [History] Allergy/AdvReac Type Severity Reaction Status Date / Time No Known Allergies Allergy Verified 08/11/19 13:49 Constitutional: Present: night sweats. Absent: chills, fatigue, fever(s), weight loss Nose, mouth and throat: Present: nasal congestion Cardiovascular: Present: rapid heart rate. Absent: chest pain, edema Respiratory: Present: cough, dyspnea Genitourinary: Absent: urinary frequency, urinary hesitancy, urinary incontinence, urinary urgency Neurological: Absent: numbness, tingling Hematologic/Lymphatic: Absent: easy bleeding, easy bruising, lymphadenopathy Oncology - Exam - Constitutional General appearance: cooperative, no acute distress - Head Head exam: Present: normal inspection, normocephalic - Respiratory Respiratory exam: Present: decreased breath sounds. Absent: wheezes - Cardiovascular Cardiovascular exam: Present: tachycardia - GI/Abdominal GI/Abdominal exam: Present: normal bowel sounds, soft. Absent: tenderness - Extremities Exam Extremities exam: Present: normal inspection - Neurological Exam Neurological exam: Present: alert, oriented X3 - Psychiatric Psychiatric exam: Present: normal affect, normal mood - Skin Skin exam: Present: dry, pallor Oncology Inpatient Results Labs: Laboratory Results - last 24 hr 08/11/19 08/11/19 08/12/19 16:30 16:30 00:26 WBC 7.5 9.1 RBC 3.77 L 3.56 L Hgb 12.7 L D 12.0 L Hct 37.8 35.7 L MCV 100.3 H 100.3 H MCH 33.7 H 33.7 H MCHC 33.6 33.6 RDW 16.3 H 16.1 H Plt Count 150 149 MPV 11.3 11.9 PT 10.4 INR 0.9 Heparin Anti-Xa, Unfract 0.00 L Sodium Potassium Chloride Carbon Dioxide BUN Creatinine Est GFR ( Amer) Est GFR (Non-Af Amer) BUN/Creatinine Ratio Glucose Calculated Osmolality Calcium Magnesium Troponin I B-Natriuretic Peptide Triglycerides Cholesterol LDL Cholesterol, Calc VLDL Cholesterol, Calc HDL Cholesterol Cholesterol/HDL Ratio 08/12/19 08/12/19 08/12/19 00:26 00:26 00:26 WBC RBC Hgb Hct MCV MCH MCHC RDW Plt Count MPV PT INR Heparin Anti-Xa, Unfract 0.79 H Sodium 140 Potassium 4.6 Chloride 106 Carbon Dioxide 19 L BUN 32 H Creatinine 0.98 Est GFR ( Amer) > 60 Est GFR (Non-Af Amer) > 60 BUN/Creatinine Ratio 33 H Glucose 83 Calculated Osmolality 296 Calcium 8.5 L Magnesium 1.7 Troponin I 0.05 H* B-Natriuretic Peptide 296 H Triglycerides 42 Cholesterol 157 LDL Cholesterol, Calc 64 VLDL Cholesterol, Calc 8 HDL Cholesterol 85 H Cholesterol/HDL Ratio 1.8 08/12/19 08:12 WBC RBC Hgb Hct MCV MCH MCHC RDW Plt Count MPV PT INR Heparin Anti-Xa, Unfract 0.70 Sodium Potassium Chloride Carbon Dioxide BUN Creatinine Est GFR ( Amer) Est GFR (Non-Af Amer) BUN/Creatinine Ratio Glucose Calculated Osmolality Calcium Magnesium Troponin I B-Natriuretic Peptide Triglycerides Cholesterol LDL Cholesterol, Calc VLDL Cholesterol, Calc HDL Cholesterol Cholesterol/HDL Ratio Chest X-Ray 08/11/19 13:45 IMPRESSION: Minimal bibasilar airspace disease, likely atelectasis in the absence of clinical signs of pneumonia. D/ / Estefain Luna MD / Estefani Luna MD Interpreting Provider: Estefani Luna MD Chest CTA 08/11/19 15:45 IMPRESSION: 1. No evidence of pulmonary embolism 2. No acute process demonstrated 3. Right infrahilar mass concerning for primary pulmonary malignancy 4. Pulmonary emphysema D/ / Keaton Finley MD / Keaton Finley MD Interpreting Provider: Keaton Finley MD Consult Discharge Plan - Plan Referrals: Steve Casey MD [Primary Care Provider] - Inpatient Charges Provider: Dr. Kyra Stevens <YohanandreasAmy nogueira - Last Filed: 08/12/19 16:50> Date of Encounter: 08/12/19 Assessment and Plan (1) Lung mass Status: Acute - Data of Consult Requesting Physician: Dwight Diaz Primary Care Provider: Steve Casey MD - Consult Narrative History of present illness: PAtient with recent hx sinus infection with tachycardia, SVT, underwent CT imaging that shows rt infrahilar mass concerning for malignancy. He denied cough with expectoration or fevers/w t loss prior to coming to hospital. Currently cardiology is Rx A flutter. Once he is stable, he will need bronch procedure/outpatient PET imaging. WE reviewed imaging results and possible diagnosis in detail with patient. Will continue to follow. I examined this patient and my medical decision-making was reviewed with the Advanced Practice Nurse, Vicky Adhikari. I agree with the documented findings, disposition and treatment plan as described except to the extent set forth below. Inpatient Charges Provider: Dr. Kyra Stevens Consult - Inpatient: [id number]
[2019-08-12] MEDS ORDERED: Lidocaine Viscous Oral Soln 15 ML SOLUTION MM PRN (14:35)
[2019-08-12] MEDS ORDERED: 0.9 % Sodium Chloride 500 ML IVC ONE (14:35)
[2019-08-12] MEDS: *HR* Midazolam HCl 5 MG/5 ML VIAL IVP PRN ×6 (15:15→15:40)
[2019-08-12] MEDS: *HR* FentaNYL (PF) 100 MCG/2 ML VIAL IVP PRN ×5 (15:15→15:40)
--- NOTE | 2019-08-12 15:50 | Event Note ---
Date of Encounter: 08/12/19 Time of Encounter: 15:40 - Cardiology Event Note Reviewed with Dr. Villasenor. Unable to complete SAHIL guided DCCV, patient was difficult to sedate. Plan for TTE guided DCCV in AM with anesthesia. Discussed and reviewed with Dr. Nunn. Will make NPO after MN except medications.
--- NOTE | 2019-08-12 16:08 | Electrocardiograph Report ---
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
--- NOTE | 2019-08-12 16:17 | Electrocardiograph Report ---
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
--- NOTE | 2019-08-12 16:19 | Electrocardiograph Report ---
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
[2019-08-12] MEDS ORDERED: *HR* LORazepam 2 MG/ML VIAL IVP PRN ×3 (16:22)
--- NOTE | 2019-08-12 17:25 | Event Note ---
Date of Encounter: 08/12/19 Time of Encounter: 17:20 Pt was unable to be cardioverted. Patient's stated that he drinks heavily, patient does not want discuss this. We are not sure when his last drink was. It does appear he is having mild alcohol withdrawals, and his atrial flutter may be related to "holiday heart". Patient is now on CIWA protocol, may need a sitter. If his symptoms get worse will consider Precedex.
[2019-08-12] MEDS: Thiamine (B-1) 100 MG, Folic Acid 1 MG, MVI, adult with vitamin K 10 ML in 0.9 % Sodi... IVPB SCH (18:40)
[2019-08-13] MEDS ORDERED: Amiodarone Premix 360 MG/200 ML BAG IVC SCH (06:30)
--- NOTE | 2019-08-13 07:28 | Internal Med Progress Note ---
Hospitalist Progress Note - Encounter Date of Encounter: 08/13/19 Time of Encounter: 07:27 - Subjective Interval History: Pt remains exertionally dyspneic but otherwise denies symptoms including no lightheadedness, dizziness, CP, palpitations, cough, N/V, leg swelling. Also denies tremors or sweats or hallucinations, does state that he'd sure like to ea t some food and have a drink soon since he's been essentially NPO since Sunday. - Exam Vitals: Temp Pulse Resp BP Pulse Ox 98.0 F 147 24 121/88 95 08/13/19 07:09 08/13/19 07:09 08/13/19 07:09 08/13/19 07:09 08/13/19 07:09 Exam: General: NAD, good eye contact, relatively well appearing, nontoxic Thoracic: Normal breath sounds b/l, no wheezing or crackles Cardio: Normal S1 and S2, regular rate, tachycardic Abdomen: Soft, nontender Extremities: Warm, well perfused. DP pulses 2+ b/l. No edema Skin: Intact. No rashes, bruises, or ulcers Neuro: Awake, fully oriented. Good memory, concentration, attention. Speech fluent. - Summary of Assessment and Plan Summary of Assessment and Plan: Gerardo Whittaker is a 73 M w hx HTN, HLD, COPD, smoker, who p/w regular tach ycardia at 150s concerning for SVT likely AFL 2:1. SVT: regular around 155-160 concerning for AFL w 2:1 block, no response to lopressor or cardizem gtt, and on amio x24h without improvement. Attempted DCCV yesterday but difficulties w sedation. - hep gtt - Cardio following, plan for SAHIL/DCCV w anesthesia today Lung mass: - Onc following, rec biopsy of lung mass after tachycardia controlled, likely while on hep gtt prior to starting po AC Elevated trop: 2/2 demand from tachycardia COPD: emphysema on CT, not on home inhalers or home O2, stable HTN: home lisinopril 10 HLD: hold simvastatin while on dilt, home ASA Allergies: home claritin, singulair Smoker: nicotine replacement offered, cessation advised PPx: hep gtt Tele: yes Activity: up ad david FEN: NPO then after procedure regular diet, stop MIVF Lines: PIV Consults: Cardio, Onc Code: Full Dispo: inpatient for refractory SVT, anticipate 1-2 more days, will be homegoing Internal Medicine: Result - Labs CBC & Chem 7: 08/13/19 08:36 08/13/19 08:36 - ABG Interpretation ABG results: PT/INR, D-dimer PT 10.4 Seconds (9.4-12.1) 08/11/19 16:30 D-Dimer 4349 ng/mLFEU (0-500) H 08/11/19 13:33 - Impressions Impressions Transesophageal w/Cardioversion 08/12/19 14:46 Impressions: Procedure cancelled due to patient agitation. Recommend rescheduling under MAC with Anesthesia guidance. Findings: Consult Discharge Plan - Plan Referrals: Dinora Cyr CNP [Partnered Physician] - (Per the office they will call the patient at home with a follow up appointment) Steve Casey MD [Primary Care Provider] - 08/25/19 2:00 pm
[2019-08-13] MEDS: Amiodarone Premix 360 MG/200 ML BAG IVC SCH ×2 (08:22→21:11)
[2019-08-13] MEDS: Aspirin Enteric Coated 81 MG Tablet PO SCH (08:24)
[2019-08-13] MEDS: Loratadine 10 MG TABLET PO SCH (08:24)
[2019-08-13] MEDS: Fluticasone Propionate Nasal 50 MCG/SPRAY BOTTLE NS SCH ×3 (08:25→19:58)
[2019-08-13 08:47] LABS: Hematocrit 36.3 % (37.5-50.1); Hemoglobin 12.1 g/dL (12.9-16.9); Mean Corpuscular HGB Conc 33.3 g/dL (31.6-35.5); Mean Corpuscular Hemoglobin 33.8 pg (28.0-33.3); Mean Corpuscular Volume 101.4 fL (83.0-100.0); Mean Platelet Volume 11.8 fL (9.4-12.4); Platelet Count 123 K/mcL (140-400); Red Blood Count 3.58 M/mcL (4.19-5.50); Red Cell Distribution Width 16.2 % (11.5-14.5); White Blood Count 9.5 K/mcL (4.3-11.1)
[2019-08-13 09:09] LABS: BUN/Creatinine Ratio 27 (6-26); Blood Urea Nitrogen 24 mg/dL (8-23); Calcium 8.9 mg/dL (8.6-10.3); Carbon Dioxide 21 mEq/L (23-29); Chloride 106 mEq/L (98-107); Glucose 116 mg/dL (70-105); Magnesium 1.6 mg/dL (1.6-2.6); Osmolality,Calculated 293 (280-300); Potassium 4.1 mEq/L (3.5-5.1); Sodium 139 mEq/L (136-145); eGFR For African Americans > 60 (> 60); eGFR For Non-African Americans > 60 (> 60)
--- NOTE | 2019-08-13 10:26 | Cardiology Progress Note ---
<Dante Guido M - Last Filed: 08/13/19 10:23> Date of Encounter: 08/13/19 Time of Encounter: 08:00 Assessment and Plan (1) SVT (supraventricular tachycardia) Current Visit: Yes Status: Acute The patient presents with acute onset SVT, HR 150's concerning for Atrial flutter with 2:1 block. Patient is currently asymptomatic and hemodynamically stable. Was started on Cardizem gtt with no improvement. Given one dose IV lopressor and no improvement in HR but he did develop transient hypotension. Therefore, patient was switched to amiodorone gtt, still no improvement in HR but BP has been stable. Patient denies CP/palpitations/SOB at this time. Troponins were mildly elevated on admission, 0.06-->0.05, likely demand ischemia in setting of SVT. Etiology of acute onset SVT not responsive to medications likely 2/2 incidental finding on CTPE of a lung mass. Patient unable to complete DCCV yesterday d/t agitation in setting of alcohol abuse as reported by . Plan: -Continue Heparin drip -NPO for DCCV today, MAC/Anesthesia support for enhanced sedation -Continue Amiodorone gtt for now -Continue Telemetry and closely monitor BP/HR Discussion w patient/family: The assessment and plan as outlined above was discussed with the patient and/or family members who expressed understanding and agreement. All questions were answered. Thank you for involving us in the care of your patient. Please call with any questions. Subjective Principal diagnosis: Aflutter Interval history: Patient seen and examined at bedside this morning. Patient denies any new or worsening complaints at this time. Denies chest pain, fevers/chills, nausea, diaphoresis. Admits to some continued SOB, has baseline SANDRA but now complains of SOB at rest as well. Patient was unable to complete DCCV yesterday d/t agitation. Turns out, patient has a history of alcohol abuse as reported by . Now on CIWA with sitter. Plan for DCCV with MAC/Anesthesia today, remains in AFlutter with 2:1 block. Objective Vital Signs, Last 4 Hours Temp Pulse Resp BP Pulse Ox 08/13/19 07:09 98.0 F 147 24 121/88 95 Other: General: NAD, good eye contact, relatively well appearing Head: Atraumatic, normocephalic. Face symmetric Eyes: EOMI, sclerae anicteric ENT: Mucous membranes moist. Normal oral mucosa. Trachea midline. Thoracic: No visible chest wall deformities. Normal breath sounds b/l, no wheezing or crackles Cardio: Normal S1 and S2, tachycardic but regular rhythm Abdomen: Soft, nontender, nondistended. Extremities: Warm, well perfused. DP pulses 2+ b/l. No clubbing, cyanosis. No edema Skin: Intact. No rashes, bruises, or ulcers Neuro: no focal deficits, strength/sensation intact, oriented and alert Results 08/13/19 08:36 08/13/19 08:36 Lab Results 08/13/19 08/13/19 08:36 08:36 WBC 9.5 Hgb 12.1 L Hct 36.3 L Plt Count 123 L Sodium 139 Potassium 4.1 Chloride 106 Carbon Dioxide 21 L BUN 24 H Creatinine 0.89 Glucose 116 H Calcium 8.9 Magnesium 1.6 Consult Discharge Plan - Plan Referrals: Dinora Cyr CNP [Partnered Physician] - (Per the office they will call the patient at home with a follow up appointment) Steve Casey MD [Primary Care Provider] - 08/25/19 2:00 pm < A - Last Filed: 08/13/19 19:36> Date of Encounter: 08/13/19 Assessment and Plan Discussion w patient/family: The assessment and plan as outlined above was discussed with the patient and/or family members who expressed understanding and agreement. All questions were answered. Thank you for involving us in the care of your patient. Please call with any questions. Objective Vital Signs, Last 4 Hours Temp Pulse Resp BP Pulse Ox 08/13/19 19:26 97.8 F 147 20 111/80 94 08/13/19 18:52 90/60 08/13/19 18:21 149 112/80 08/13/19 17:00 104/71 08/13/19 16:00 112/86 08/13/19 15:43 98.1 F 147 18 102/86 95 Results 08/13/19 08:36 08/13/19 08:36 Lab Results 08/13/19 08/13/19 08:36 08:36 WBC 9.5 Hgb 12.1 L Hct 36.3 L Plt Count 123 L Sodium 139 Potassium 4.1 Chloride 106 Carbon Dioxide 21 L BUN 24 H Creatinine 0.89 Glucose 116 H Calcium 8.9 Magnesium 1.6 - Attending Attestation I have personally performed a face to face evaluation on this patient. 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 History and Exam by me shows: Was unable to be cardioverted due to poor SAHIL images. Continue rate control with amiodarone and Cardizem drip. Recommend EP consult. GI consult to rule out esophageal varices given alcohol abuse. Thanks for the consult, please call with questions. Huber Nunn MD [facility]
[2019-08-13] MEDS: Heparin 25,000 UNIT/250 ML D5W 25,000 UNIT/250 ML IV.SOLN IVC SCH (10:29)
--- NOTE | 2019-08-13 11:09 | Anesthesia Evaluation PreOp ---
Date of Encounter: 08/13/19 Time of Encounter: 12:30 - Past History Planned Operation: SAHIL with cardioversion Cardiac History: HTN, Hyperlipidemia, Arrhythmia (SVT unresponsive to meds(lopressor, cardiazem and amiodrone)) Pulmonary History: Smoker, COPD, Other (lung mass) ROOFER ASSISTANT History: Denies Any Significant HX Other Medical History: Other (alcoholism) Alcohol Use: heavy Drug use: none Medications and Allergies Aspirin [Lo-Dose Aspirin EC] 81 mg PO DAILY 08/11/19 [History] Fluticasone Propionate Nasal [Flonase] 50 mcg NS DAILY 08/11/19 [History] Lisinopril [Zestril] 10 mg PO DAILY 08/11/19 [History] Loratadine [Claritin] 10 mg PO DAILY 08/11/19 [History] Montelukast [Singulair] 10 mg PO DAILY 08/11/19 [History] Polyethylene Glycol 3350 [MiraLAX] 17 gm PO DAILY 08/11/19 [History] Simvastatin [Zocor] 40 mg PO HS 08/11/19 [History] Tizanidine HCl [Zanaflex] 2 mg PO TID PRN 08/11/19 [History] Vitamin B Complex [Balanced B-50] 1 each PO DAILY 08/11/19 [History] Allergy/AdvReac Type Severity Reaction Status Date / Time No Known Allergies Allergy Verified 08/11/19 13:49 - Meds/Allergy Pre-op Review Medications Reviewed: Yes Allergies Reviewed: Yes Beta Blockers on Current Med List: No Anesthesia Results - Labs 08/13/19 08:36 08/13/19 08:36 - Imaging EKG: report reviewed (ATRIAL FLUTTER WITH RAPID VENTRICULAR RESPONSE ABNORMAL RHYTHM ECG) Anesthesia Exam Selected Entries 08/13/19 07:09 Temperature 98.0 F Pulse Rate 147 Respiratory Rate 24 Blood Pressure 121/88 O2 Sat by Pulse Oximetry 95 Oxygen Delivery Method Nasal Cannula Weight: 95kg - ROOFER ASSISTANT LOC: Oriented ROOFER ASSISTANT Motor: Normal RUE, Normal LUE, Normal RLE, Normal LLE, Normal Face ROOFER ASSISTANT Sensory: Normal: RUE, LUE, RLE, LLE, Face - Cardiac Rhythm: Regular (tachy) - Pulmonary Breath Sounds: bilateral Clear Respiratory Effort: Symmetrical Anesthesia Assess/Plan ASA Score: 4 Level of consciousness: Cooperative, Oriented Anesthetic Plan: MAC Monitoring Plan: Standard Monitors Recovery Plan: Other
[2019-08-13] MEDS ORDERED: *HR* Phenylephrine 10 MG/ML VIAL ONE (11:53)
[2019-08-13] MEDS ORDERED: Lidocaine -MPF 2% 2 ML VIAL ONE (11:59)
[2019-08-13] MEDS ORDERED: 0.9 % Sodium Chloride 500 ML IVC ONE (12:25)
[2019-08-13] MEDS ORDERED: Lidocaine Viscous Oral Soln 15 ML SOLUTION MM PRN (12:25)
[2019-08-13] MEDS ORDERED: Oxymetazoline Nasal SPRAY BOTTLE NS ONE (12:28)
[2019-08-13] MEDS ORDERED: Amiodarone 150 MG in D5% in Water 100 ML IVPB ONE (13:20)
[2019-08-13] MEDS ORDERED: Amiodarone Premix 150 MG/100 ML BAG IVPB ONE (15:00)
--- NOTE | 2019-08-13 15:19 | Event Note ---
Date of Encounter: 08/13/19 Time of Encounter: 12:30 - Cardiology Event Note SAHIL unsuccessful. Dicussed with Dr. Nunn recommends more aggressive rate control. Re-bolus with IV amiodarone. Start IV cardizem. Due to heavy ETOH use there is concern for esophogeal varicies. GI consulted to evaluate prior to retirement AC recommendation.
[2019-08-13] MEDS: Thiamine (B-1) 100 MG, Folic Acid 1 MG, MVI, adult with vitamin K 10 ML in 0.9 % Sodi... IVPB SCH (16:55)
--- NOTE | 2019-08-13 21:33 | Electrocardiograph Report ---
[address] [address] Test Date: 2019-08-13 Pat Name: Gerardo Whittaker Department: 110 Room: 2N06 Gender: M Test Deskman: : 1945 Requested By: Dwight Diaz Order Number: [id number] Reading MD: Siria Villasenor Measurements Intervals [place] Rate: 148 P: 215 WI: 129 QRS: 71 QRSD: 93 T: 71 QT: 299 QTc: 384 Interpretive Statements SINUS TACHYCARDIA, POSSIBLE ATRIAL FLUTTER NONSPECIFIC T-WAVE ABNORMALITY ABNORMAL RHYTHM ECG Electronically Signed On 08-13-2019 21:31:51 EDT by Siria Villasenor
[2019-08-14] MEDS: Aspirin Enteric Coated 81 MG Tablet PO SCH (07:53)
[2019-08-14] MEDS: Loratadine 10 MG TABLET PO SCH (07:53)
--- NOTE | 2019-08-14 08:05 | Internal Med Progress Note ---
Hospitalist Progress Note - Encounter Date of Encounter: 08/14/19 Time of Encounter: 08:00 - Exam Vitals: Temp Pulse Resp BP Pulse Ox 98.4 F 128 18 105/96 92 08/14/19 04:22 08/14/19 04:22 08/14/19 04:22 08/14/19 04:22 08/14/19 00:15 - Summary of Assessment and Plan Summary of Assessment and Plan: Gerardo Whittaker is a 73 M w hx HTN, HLD, COPD, smoker, who p/w regular tachycardia at 150s concerning for SVT likely AFL 2:1. A-Fib/A-Flutter: regular around 150 concerning for AFL w 2:1 block, no response to lopressor or cardizem gtt or amio gtt and cardioversion. Overnight was rebolused w amio and had cardizem resumed, with improvement into the 110-120s. - hep gtt - cardizem gtt - amio gtt - Cardio following Lung mass: - Onc following, rec biopsy of lung mass after tachycardia controlled, likely while on hep gtt prior to starting po AC Concern on SAHIL of esophageal varices: on admission, CT chest did not comment on abnormal liver or varices - RUQ US - Cardio consulted GI Elevated trop: 2/2 demand from tachycardia COPD: emphysema on CT, not on home inhalers or home O2, stable HTN: home lisinopril 10 HLD: hold simvastatin while on dilt, home ASA Allergies: home claritin, singulair Smoker: nicotine replacement offered, cessation advised PPx: hep gtt Tele: yes Activity: up ad david FEN: Regular diet, no MIVF Lines: PIV Consults: Cardio, Onc, GI Code: Full Dispo: inpatient for refractory SVT, anticipate 2-3 more days, will be homegoing Internal Medicine: Result - Labs CBC & Chem 7: 08/13/19 08:36 08/13/19 08:36 Labs: Short CBC 08/13/19 Range/Units 08:36 WBC 9.5 (4.3-11.1) K/mcL Hgb 12.1 L (12.9-16.9) g/dL Hct 36.3 L (37.5-50.1) % Plt Count 123 L (140-400) K/mcL BMP 08/13/19 08:36 Sodium 139 Potassium 4.1 Chloride 106 Carbon Dioxide 21 L BUN 24 H Creatinine 0.89 Glucose 116 H Calcium 8.9 - ABG Interpretation ABG results: PT/INR, D-dimer PT 10.4 Seconds (9.4-12.1) 08/11/19 16:30 D-Dimer 4349 ng/mLFEU (0-500) H 08/11/19 13:33 Consult Discharge Plan - Plan Referrals: Dinora Cyr CNP [Partnered Physician] - (Per the office they will call the patient at home with a follow up appointment) Steve Casey MD [Primary Care Provider] - 08/25/19 2:00 pm
[2019-08-14] MEDS: Amiodarone Premix 360 MG/200 ML BAG IVC SCH ×2 (09:08→21:22)
[2019-08-14] MEDS ORDERED: *HR* Digoxin 0.5 MG/2 ML AMPUL IVP ONE (09:23)
[2019-08-14] MEDS: Heparin 25,000 UNIT/250 ML D5W 25,000 UNIT/250 ML IV.SOLN IVC SCH (09:42)
--- NOTE | 2019-08-14 09:50 | Gastroenterology Consult Note ---
<Carloz Melton - Last Filed: 08/14/19 18:03> Date of Encounter: 08/14/19 Time of Encounter: 09:20 - Assessment and plan (1) Esophageal varices Current Visit: Yes Status: Acute Assessment and plan: there was a concern for esophageal varcies when SAHIL was being performed on the patient. Patient was initially being transferred to [place] today due to refractory A. fib RVR able to cardiovert however patient does want is likely cardiovert this afternoon while awaiting transfer. -To undergo EGD tomorrow morning to rule out presence of esophageal varices. - Time Spent With Patient Total time spent is greater than 50% in coordination of care (as documented) at patient's floor/unit and/or counseling patient: GI History of Present Illness - Data of Consult Requesting Physician: Dwight Diaz - Consult Narrative History of present illness: Mr. Whittaker is a 73 year old male with a past medical history of hypertension, hyperlipidemia, COPD, smoker presented to the hospital because of elevated heart rate. Straw and nephrology was consult because of concerns for esophageal varices Mr. Whittaker is a 73 year old male with a past medical history of hypertension, hyperlipidemia, COPD, smoker presented to the hospital because of elevated heart rate. Patient was found to be in's SVT with heart rate in 150s with concerns for atrial flutter with 2 stool 1 block. She was refractory to Cardizem gtt. and IV Lopressor and was switched to amiodarone GTT Past Med Surg Social Fam HX - Past Medical History Medical history: hyperlipidemia, hypertension Psychiatric history: no psych history - Past Surgical History Surgical History: hip replacement - Social History Smoking Status: Current every day smoker Packs per day: 1.5 Smokeless Tobacco Status: No Alcohol use: heavy Drug use: none Review of Systems: A 10-system review of systems was performed and is negative for pertinent findings except as documented above in the HPI. - Constitutional Vitals: Temp Pulse Resp BP Pulse Ox 98.4 F 144 12 97/52 96 08/14/19 07:30 08/14/19 08:36 08/14/19 08:36 08/14/19 08:36 08/14/19 08:36 Exam: Gen.: Vitals noted. No acute distress. Alert, awake and oriented * [address], [address], and time, well developed, well-nourished resting comfortably in bed. Pleasant. HEENT: oropharynx clear, Normocephalic, atraumatic, MMM Neck: supple, no JVD, no lymphadenopathy, no carotid bruit. Cardiac: RRR, no murmur, +S1/S2, No BLE edema, PMI non-displaced Pulmonary: CTA bilaterally, no wheezes, rales or rhonchi, equal chest expansion, unlabored breathing Abdomen: soft, nontender, BS noted, no guarding, undistended. No organomegaly, no pulsatile masses, Skin: warm and dry, no visible lesions. Feels warm, clammy, no rashes, no lesions, no erythema MSK: ROM not assessed. no joint swelling noted, gait not assessed while in bed. Non tender calf or clubbing, no cyanosis/clubbing/ or edema Neuro: A&O, moves all extremities, no focal deficits, sensation intact Psych: Appropriate mood and behavior, normal speech. Results - Labs CBC & Chem 7: 08/13/19 08:36 08/13/19 08:36 - ABG ABG results: PT/INR, D-dimer PT 10.4 Seconds (9.4-12.1) 08/11/19 16:30 D-Dimer 4349 ng/mLFEU (0-500) H 08/11/19 13:33 Consult Discharge Plan - Plan Referrals: Dinora Cyr CNP [Partnered Physician] - (Per the office they will call the patient at home with a follow up appointment) Steve Casey MD [Primary Care Provider] - 08/25/19 2:00 pm <Ana Camargo - Last Filed: 08/14/19 18:13> Date of Encounter: 08/14/19 Time of Encounter: 13:00 - Time Spent With Patient Total time spent is greater than 50% in coordination of care (as documented) at patient's floor/unit and/or counseling patient: GI History of Present Illness - Data of Consult Requesting Physician: Dwight Diaz - Consult Narrative History of present illness: Mr. Whittaker is a 73 year old male - Constitutional Vitals: Temp Pulse Resp BP Pulse Ox 98.1 F 76 18 129/80 96 08/14/19 16:55 08/14/19 16:55 08/14/19 16:55 08/14/19 16:55 08/14/19 16:55 Results - Labs CBC & Chem 7: 08/13/19 08:36 08/13/19 08:36 - ABG ABG results: PT/INR, D-dimer PT 10.4 Seconds (9.4-12.1) 08/11/19 16:30 D-Dimer 4349 ng/mLFEU (0-500) H 08/11/19 13:33 - Attending Attestation I examined this patient and my medical decision-making was reviewed with the Resident Physician. I agree with the documented findings, disposition and treatment plan as described except to the extent set forth below. Patient seen denies any trouble swallowing. On examination: Currently tachycardic but abdomen is benign. Assessment patient with a history of alcohol abuse and now is concern is for possible varices. He was supposed to be transferred to [place] because of his uncontrolled tachyarrhythmias but now he has converted back to sinus rhythm and transferse has been canceled. ReC; EGD to rule out varices in the morning
[2019-08-14] MEDS ORDERED: *HR* Digoxin 0.5 MG/2 ML AMPUL ONE (10:52)
--- NOTE | 2019-08-14 11:19 | Electrophysiology Consult Note ---
<Noel,Casey R - Last Filed: 08/14/19 11:20> Date of Encounter: 08/14/19 Time of Encounter: 11:15 Assessment and Plan (1) Atrial flutter with rapid ventricular response Status: Acute Presented 08/11 from PCP office in A-Flutter RVR. Found to have perihilar mass--o ncology following. K, Mag, TSH WNL. Heavy ETOH use. Loaded with IV amiodarone, no improvement, attempted SAHIL/DCCV 08/13, but pt did not tolerate attempted SAHIL. Rescheduled yesterday 08/14 with anesthesia, but pt still did not tolerate, suboptimal images on SAHIL. DCCV has not been attempted. Reloaded with IV amiodarone. RVR persists. On cardizem gtt 5mg/hr. HR 140s at bedside. BP marginal. Discussed and reviewed with Dr. Giuseppe Swain. Will load with IV digoxin--total of 1mg. TTE to evaluate structure and function. Recommend transfer to tertiary facility given two unsuccessful SAHIL attempts. Pt needs DCCV in attempt to restore SR. Discussed with hospitalist. [id number] 3 (Age, HTN). High CVA risk. Currently on heparin gtt. Will need assisted AC. GI was consulted given concern of esophageal varices with heavy ETOH use. Discussion w patient/family: The assessment and plan as outlined above was discussed with the patient and/or family members who expressed understanding and agreement. All questions were answered. Thank you for involving us in the care of your patient. Please call with any questions. I will discuss all the above with Dr. Giuseppe Swain and make changes as necessary. History of Present Illness Consult date: 08/14/19 Requesting physician: Cortez Soto Consult reason: A-Flutter RVR History of present illness: Mr. Whittaker is a 73 year old male with PMH of HTN, HLD, COPD, tobacco abuse, ETOH abuse who presents from PCP office 08/11 for tachycardia. Patient went to PCP for sinus problems, found to be A-Flutter RVR and was sent to ED and admitted. Loaded with IV amiodarone, no improvement, attempted SAHIL/DCCV 08/13, but pt did not tolerate attempted SAHIL. Rescheduled yesterday 08/14 with anesthesia, but pt still did not tolerate, suboptimal images on SAHIL. DCCV not attempted. Reloaded with IV amiodarone. RVR persists. On cardizem gtt 5mg/hr. EP consulted for further recs. Past Med Surg Social Fam HX - Past Medical History Medical history: hyperlipidemia, hypertension Psychiatric history: no psych history - Past Surgical History Surgical History: hip replacement - Social History Smoking Status: Current every day smoker Packs per day: 1.5 Smokeless Tobacco Status: No Alcohol use: heavy Drug use: none Medications and Allergies Aspirin [Lo-Dose Aspirin EC] 81 mg PO DAILY 08/11/19 [History] Fluticasone Propionate Nasal [Flonase] 50 mcg NS DAILY 08/11/19 [History] Loratadine [Claritin] 10 mg PO DAILY 08/11/19 [History] Montelukast [Singulair] 10 mg PO DAILY 08/11/19 [History] Polyethylene Glycol 3350 [MiraLAX] 17 gm PO DAILY 08/11/19 [History] Tizanidine HCl [Zanaflex] 2 mg PO TID PRN 08/11/19 [History] Vitamin B Complex [Balanced B-50] 1 each PO DAILY 08/11/19 [History] Apixaban [Eliquis] 5 mg PO BID #60 tablet 08/15/19 [Rx] Amiodarone [Cordarone] 200 mg PO DAILY #30 tablet 08/16/19 [Rx] Diltiazem CD (24hr) [Cardizem CD] 120 mg PO DAILY #30 cap.er.24h 08/16/19 [Rx] Omeprazole [PriLOSEC] 40 mg PO DAILY@0630 #60 capsule.dr 08/16/19 [Rx] Simvastatin [Zocor] 20 mg PO HS #30 tablet 08/16/19 [Rx] Allergy/AdvReac Type Severity Reaction Status Date / Time No Known Allergies Allergy Verified 08/11/19 13:49 All Systems Review: The remainder of the systems were reviewed and are negative - Cardiovascular Cardiovascular: as per HPI Physical Examination Vital Signs, Last 4 Hours Temp Pulse Resp BP Pulse Ox 08/14/19 10:51 144 16 122/94 92 08/14/19 08:36 144 12 97/52 96 08/14/19 07:30 98.4 F 105 14 105/72 96 Vital Signs Temp Pulse Resp BP Pulse Ox 08/14/19 10:51 144 16 122/94 92 08/14/19 08:36 144 12 97/52 96 08/14/19 07:30 98.4 F 105 14 105/72 96 08/14/19 04:22 98.4 F 128 18 105/96 08/14/19 00:34 123 08/14/19 00:15 99.1 F 119 18 91/81 92 08/13/19 20:45 146 08/13/19 19:26 97.8 F 147 20 111/80 94 08/13/19 18:52 90/60 08/13/19 18:21 149 112/80 08/13/19 17:00 104/71 08/13/19 16:00 112/86 08/13/19 15:43 98.1 F 147 18 102/86 95 08/13/19 15:20 102/86 08/13/19 12:21 97.8 F 149 16 115/87 94 08/13/19 11:33 99.0 F 149 20 105/81 94 Intake and Output 08/13/19 08/14/19 08/14/19 23:59 07:59 15:59 Intake Total 671.2 / 1883.4 10 / 418.8 408.8 / 418.8 Output Total 120 / 120 Balance 671.2 / 1683.4 -110 / 298.8 408.8 / 298.8 Intake: IV Fluids 431.2 / 1643.4 10 / 418.8 408.8 / 418.8 Amiodarone Drip Premix 360mg/ 200 / 400 200 / 200 200mL 360 mg In 200 ml @ 0.5 MG /MIN 16.667 mls/hr IVC CONT [facility] Rx#:[id number] Cardizem 50 MG In 0.9 % Sodium 50.0 / 50.0 10 / 50 40 / 50 Chloride 40 ML @ 5 MG/HR 5 mls/ hr IVC .Q10H [facility] Rx#:[id number] Heparin 25,000 UNIT/250 ML D5W 81.2 / 331.2 168.8 / 168.8 25,000 unit In 250 ml @ 14 UNIT /KG/HR 13.526 mls/hr IVC . [id number] [facility] Rx#:[id number] Amiodarone Premix 150mg/100mL 100 / 100 150 mg In 100 ml @ 291.262 mls/ hr IVPB ONCE ONE Rx#:[id number] Oral 240 / 240 Output: Urine 120 / 120 Other: Meal Dinner Percent of Meal Consumed 65% Weight 95 kg Patient Weight 08/14/19 23:59 Weight 95 kg General: Conversant, No Apparent Distress HEENT: Atraumatic, Normocephaly, Mucus Membranes Moist Neck: No JVD, Normal carotid pulses Cardiac: Other (regularly irregular) Lungs: Normal Breath Sounds, No Wheeze, Rales, Rhonchi Neuro: Alert and responsive, No focal deficits noted Abdomen: Soft, Non-Tender Skin: No rashes noted on visualized skin Musculoskeletal: No Chest Wall Tenderness Extremities: No Clubbing, No Cyanosis, No Edema, Normal Pulses Results 08/13/19 08:36 08/13/19 08:36 Active Medications Acetaminophen (Tylenol) 650 mg PO Q6HR PRN PRN Reason: Mild Pain/Fever Stop: 02/10/20 17:44 Aspirin (Aspirin Ec) 81 mg PO DAILY [facility] Stop: 02/11/20 09:01 Last Admin: 08/14/19 07:53 Dose: 81 mg Documented by: Digoxin (Lanoxin) 0.25 mg IVP Q6H [facility] Stop: 08/14/19 21:31 Fluticasone Propionate (Flonase) 50 mcg NS HS [facility]; Protocol Stop: 02/11/20 09:01 Last Admin: 08/13/19 19:58 Dose: 50 mcg Documented by: Folic Acid (Folic Acid) 1 mg PO DAILY [facility] Stop: 02/14/20 09:01 Heparin Sodium (Porcine) (Heparin) 6,800 unit 70 unit/kg (6800 unit) IVP Q6HR PRN PRN Reason: SEE COMMENTS Stop: 02/10/20 16:31 Heparin Sodium (Porcine) (Heparin) 3,400 unit 35 unit/kg (3400 unit) IVP Q6H PRN PRN Reason: SEE COMMENTS Stop: 02/10/20 16:31 Amiodarone HCl/Dextrose (Amiodarone Drip Premix 360mg/200ml) 360 mg in 200 mls @ 16.667 mls/hr IVC CONT [facility] Stop: 02/11/20 00:46 Last Admin: 08/14/19 09:08 Dose: 0.5 mg/min, 16.7 mls/hr Documented by: Heparin Sodium/Dextrose (Heparin 25,000 Unit/250 Ml D5w) 25,000 unit in 250 mls @ 13.526 mls/hr IVC .[id number] [facility]; Protocol Stop: 02/10/20 16:31 Last Admin: 08/14/19 09:42 Dose: 12.11 unit/kg/hr, 11.7 mls/hr Documented by: Thiamine HCl 100 mg/ Folic Acid 1 mg/ Multivitamins 10 ml / Sodium Chloride 511.2 mls @ 85.2 mls/hr IVPB DAILY@1800 [facility] Stop: 08/14/19 23:59 Last Admin: 08/13/19 16:55 Dose: 85.2 mls/hr Documented by: Diltiazem HCl 50 mg/ Sodium (Chloride) 50 mls @ 5 mls/hr IVC .Q10H [facility] Stop: 02/12/20 13:31 Last Admin: 08/14/19 09:00 Dose: 5 mg/hr, 5 mls/hr Documented by: Lidocaine (Lidocaine Viscous Oral Soln) 15 ml MM ONCE PRN PRN Reason: Lubricant of oropharynx Last Admin: 08/13/19 12:50 Dose: 15 ml Documented by: Lisinopril (Zestril) 10 mg PO DAILY [facility]; Protocol Stop: 02/11/20 09:01 Last Admin: 08/14/19 07:52 Dose: 10 mg Documented by: Loratadine (Claritin) 10 mg PO DAILY [facility] Stop: 02/11/20 09:01 Last Admin: 08/14/19 07:53 Dose: 10 mg Documented by: Lorazepam (Ativan) 1 mg IVP Q1H PRN PRN Reason: Alcohol Withdrawal Stop: 02/11/20 16:23 Lorazepam (Ativan) 2 mg IVP Q4HR PRN PRN Reason: CIWA Score of 10-21 Stop: 02/11/20 16:23 Last Admin: 08/12/19 16:43 Dose: 2 mg Documented by: Lorazepam (Ativan) 4 mg IVP Q4HR PRN PRN Reason: CIWA Score of 22-45 Stop: 02/11/20 16:23 Montelukast Sodium (Singulair) 10 mg PO QPM [facility] Stop: 02/11/20 18:01 Last Admin: 08/13/19 16:56 Dose: 10 mg Documented by: Naloxone HCl (Narcan) 0.4 mg IVP Q2MPRN PRN PRN Reason: SEE COMMENTS Stop: 02/10/20 17:44 Ondansetron HCl (Zofran) 4 mg IVP Q8HR PRN PRN Reason: Nausea And Vomiting Stop: 02/10/20 17:44 Polyethylene Glycol (Miralax) 17 gm PO DAILY [facility] Stop: 02/11/20 09:01 Last Admin: 08/14/19 07:53 Dose: Not Given Documented by: Thiamine HCl (Vitamin B-1) 100 mg PO DAILY [facility] Stop: 02/14/20 09:01 Vitamin B Complex/Vit C/Vit E (Stresstab) 1 each PO DAILY [facility] Stop: 02/14/20 09:01 - EKG Interpretation EKG results cardiology: personally reviewed, other (12 hr tele AVG HR 117, A- Flutter) Consult Discharge Plan - Plan Instructions: Atrial Flutter (DC), Chronic Obstructive Pulmonary Disease (DC) Referrals: Rolando Wilhelm MD [Partnered Physician] - Amy Stevens MD [Partnered Physician] - Dinora Cyr CNP [Partnered Physician] - (Per the office they will call the patient at home with a follow up appointment) Ana Camargo MD [Partnered Physician] - Steve Casey MD [Primary Care Provider] - 08/25/19 2:00 pm Prescriptions: Diltiazem CD (24hr) [Cardizem CD] 120 mg PO DAILY #30 cap.er.24h Prescription Printed Amiodarone [Cordarone] 200 mg PO DAILY #30 tablet Prescription Printed Apixaban [Eliquis] 5 mg PO BID #60 tablet Prescription Printed Omeprazole [PriLOSEC] 40 mg PO DAILY@0630 #60 capsule.dr Prescription Printed Simvastatin [Zocor] 20 mg PO HS #30 tablet Prescription Printed Cardiac Rehab - Cardiac Rehab Cardiac Rehab: Phase I consult completed. Patient was educated on why Cardiac Rehabilitation is beneficial to his/her health. Participating in a cardiac rehabilitation can improve the following: strengthen your heart, improve ejection fraction, weight reduction, decrease cholesterol levels, lower blood pressure, lower blood sugar, improve stamina, and enhance self-image. If he/she has any questions, they were instructed to call [facility] at [phone]. <Giuseppe Swain - Last Filed: 08/21/19 14:15> Date of Encounter: 08/21/19 - Attending Attestation I have personally performed a face to face evaluation on this patient. I have reviewed and agree with the care plan. History and Exam by me shows: Would benenfit mostly from SAHIL cardioversion, in the meantime will aggressively rate control. Assessment and Plan Discussion w patient/family: The assessment and plan as outlined above was discussed with the patient and/or family members who expressed understanding and agreement. All questions were answered. Thank you for involving us in the care of your patient. Please call with any questions. History of Present Illness History of present illness: Mr. Whittaker is a 73 year old male All Systems Review: The remainder of the systems were reviewed and are negative Results 08/16/19 02:47 08/16/19 02:47 Cardiac Rehab - Cardiac Rehab Cardiac Rehab: Phase I consult completed. Patient was educated on why Cardiac Rehabilitation is beneficial to his/her health. Participating in a cardiac rehabilitation can improve the following: strengthen your heart, improve ejection fraction, weight reduction, decrease cholesterol levels, lower blood pressure, lower blood sugar, improve stamina, and enhance self-image. If he/she has any questions, they were instructed to call [facility] at [phone].
--- NOTE | 2019-08-14 12:00 | Electrocardiograph Report ---
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
--- NOTE | 2019-08-14 12:49 | Discharge Summary ---
- NOTES TO OUTPATIENT PROVIDER Notes to Outpatient Provider: 73 M smoker w COPD who p/w tachycardia HR 150, ECG showing AFL 2:1, unable to rate control w lopressor or cardizem due to soft pressures, Cardio tried amio bolus+drip x48h without success so attempted SAHIL but could not r/o thrombus and therefore no cardioversion. Transferring for repeat SAHIL/DCCV. Currently on heparin gtt, amio gtt, and cardizem @5. Loaded with Digoxin prior to transfer. Of note, likely cause seen on CT is felt to be new R hilar lung mass encasing medial basilar seg pulm artery & bronchus, and emphysema; consider bronchoscopy/biopsy after rate or rhythm control. Date of Encounter: 08/14/19 Time of Encounter: 12:40 Hospital course: Dear Doctors, I recently had the opportunity to care for this patient during their recent hospital stay at [facility]. Gerardo Whittaker is a 73 M w hx HTN, HLD, COPD, smoker, EtOH abuse, who presented at time of admission from PCP office with regular tachycardia at 150s. In the ED, pt vitals T98.1, HR 160, RR 18, SBP 100-110s, satting 95+% on RA. ECG shows regular narrow complex tachycardia HR 160. CXR unremarkable. Labs notable for WBC 8, Hb 14, Plt 175, Cr 1.1, trop 0.06, D-dimer 4400. CTPE negative for embolism but shows R infrahilar mass suspicious for malignancy. Patient given NS 2L bolus, lopressor 5 ivp x1, and started on cardizem gtt. Per cardio, concerning for SVT likely AFL 2:1. HOSPITAL COURSE: Unable to rate control w lopressor or uptitrate cardizem due to soft pressures, and therefore Cardio tried amio bolus+drip x48h without success so attempted SAHIL twice with inability to r/o thrombus and therefore no cardioversion performed. Patient is currently asymptomatic and pleasant, on heparin gtt, amio gtt, and cardizem @5. Loaded with Digoxin prior to transfer to [place]. While inpatient, Onc was consulted who rec'd biopsy of new R hilar lung mass after rate or rhythm control. PROBLEM LIST: A-Flutter RVR: regular around 150 concerning for AFL w 2:1 block. No response to iv lopressor, and unable to uptitrate cardizem above 5 for hypotension. On amio and has rec'd two boluses plus drip w/o improvement. Attempted DCCV 08/12 but unable to sedate, and attempted 08/13 but unable to get good window to ensure no thrombus. Cardio and EP suggest transfer to tertiary hospital. - hep gtt - cardizem gtt @5 - amio gtt - loaded w digoxin 0.5mg @1200, plan 0.25mg @1800 and midnight Lung mass: R perihilar mass 3x3.5 encasing R lower segmental artery and bronchus. Onc consulted, suggest biopsy after hemodynamically stable. Elevated trop: peak 0.06, likely 2/2 demand from tachycardia COPD: new emphysema on CT, not on home inhalers or home O2, stable HTN: home lisinopril 10 HLD: hold simvastatin while on dilt, home ASA Allergies: home claritin, singulair Smoker: nicotine replacement offered, cessation advised Activity: able to ambulate Lines: PIV Mental status: awake, fully oriented Code status: [employer] spent on discharge: 35 minutes It has been my pleasure participating in this patient's care. Please contact me with any questions or concerns regarding their hospital stay. Sincerely, Dwight Diaz MD - Discharge Medications Prescriptions: Continued Tizanidine HCl [Zanaflex] 2 mg PO TID PRN PRN Reason: Muscle Spasm Montelukast [Singulair] 10 mg PO DAILY Loratadine [Claritin] 10 mg PO DAILY Simvastatin [Zocor] 40 mg PO HS Lisinopril [Zestril] 10 mg PO DAILY Aspirin [Lo-Dose Aspirin EC] 81 mg PO DAILY Fluticasone Propionate Nasal [Flonase] 50 mcg NS DAILY Polyethylene Glycol 3350 [MiraLAX] 17 gm PO DAILY Vitamin B Complex [Balanced B-50] 1 each PO DAILY Home Medications: Aspirin [Lo-Dose Aspirin EC] 81 mg PO DAILY 08/11/19 [History] Fluticasone Propionate Nasal [Flonase] 50 mcg NS DAILY 08/11/19 [History] Lisinopril [Zestril] 10 mg PO DAILY 08/11/19 [History] Loratadine [Claritin] 10 mg PO DAILY 08/11/19 [History] Montelukast [Singulair] 10 mg PO DAILY 08/11/19 [History] Polyethylene Glycol 3350 [MiraLAX] 17 gm PO DAILY 08/11/19 [History] Simvastatin [Zocor] 40 mg PO HS 08/11/19 [History] Tizanidine HCl [Zanaflex] 2 mg PO TID PRN 08/11/19 [History] Vitamin B Complex [Balanced B-50] 1 each PO DAILY 08/11/19 [History] Allergies/Adverse Reactions: Allergy/AdvReac Type Severity Reaction Status Date / Time No Known Allergies Allergy Verified 08/11/19 13:49 Date of admission: 08/12/19 10:58 Primary care physician: Steve Casey MD Consults: 08/11/19 17:59 Consult to Oncology [CONS] Routine Consulting Provider: Oncology [facility] Reason for Consult: new lung mass Call Completed: No 08/12/19 08:00 Consult to Cardiology [CONS] Routine Comment: Consulting Provider: Cardiology [place] Reason for Consult: SVT, suspect Aflutter, new Time Notified: 08:00 Call Completed: Yes 08/13/19 15:20 Consult to Gastroenterology [CONS] Routine Consulting Provider: Gastroenterology [place] Reason for Consult: Evaluate for EV in setting ETOH use, need for AC Call Completed: Yes 08/14/19 11:16 Consult to Electrophysiology (EP) [CONS] Routine Consulting Provider: Electrophysiology [place] Reason for Consult: persistent atrial flutter Call Completed: Yes - Constitutional Vitals: Temp Pulse Resp BP Pulse Ox 98.4 F 144 16 122/94 92 08/14/19 07:30 08/14/19 10:51 08/14/19 10:51 08/14/19 10:51 08/14/19 10:51 Exam: General: NAD, good eye contact, relatively well appearing, nontoxic Thoracic: Normal breath sounds b/l, no wheezing or crackles Cardio: Normal S1 and S2, regular rate, tachycardic Abdomen: Soft, nontender Extremities: Warm, well perfused. DP pulses 2+ b/l. No edema Skin: Intact. No rashes, bruises, or ulcers Neuro: Awake, fully oriented. Good memory, concentration, attention. Speech fluent. - Patient Status Disposition: Transfer Short-Term Hosp Condition: Fair Functional capacity at discharge: independent ambulation Overall status at discharge: patient is not back to baseline - Discharge Instructions Follow Up With: Dinora Cyr CNP [Partnered Physician] - (Per the office they will call the patient at home with a follow up appointment) Steve Casey MD [Primary Care Provider] - 08/25/19 2:00 pm - Diet and Activity Activity: resume usual activities as tolerated Diet: advance to your usual diet
[2019-08-14] MEDS: *HR* Digoxin 0.5 MG/2 ML AMPUL IVP SCH ×2 (16:02→20:17)
--- NOTE | 2019-08-14 16:53 | Internal Med Progress Note ---
Hospitalist Progress Note - Encounter Date of Encounter: 08/14/19 Time of Encounter: 16:48 - Subjective Interval History: Initially planned for transfer to [place] today due to refractory AFL RVR unable to cardiovert, however spontaneously converted this afternoon while awaiting transfer. Denies symptoms other than exertional dysnpea. - Exam Vitals: Temp Pulse Resp BP Pulse Ox 98.4 F 144 16 122/94 92 08/14/19 07:30 08/14/19 10:51 08/14/19 10:51 08/14/19 10:51 08/14/19 10:51 Exam: General: NAD, good eye contact, relatively well appearing, nontoxic Thoracic: Normal breath sounds b/l, no wheezing or crackles Cardio: Normal S1 and S2, regular rate, tachycardic Abdomen: Soft, nontender Extremities: Warm, well perfused. DP pulses 2+ b/l. No edema Skin: Intact. No rashes, bruises, or ulcers Neuro: Awake, fully oriented. Good memory, concentration, attention. Speech fluent. - Summary of Assessment and Plan Summary of Assessment and Plan: Gerardo Whittaker is a 73 M w hx HTN, HLD, COPD, smoker, who p/w regular tachycardia at 150s concerning for SVT likely AFL 2:1. A-Flutter RVR: regular around 150 concerning for AFL w 2:1 block. No response to iv lopressor, and unable to uptitrate cardizem above 5 for hypotension. On amio and has rec'd two boluses plus drip w/o improvement. Attempted DCCV 08/12 but unable to sedate, and attempted 08/13 but unable to get good window to ensure no thrombus. Cardio and EP suggest transfer to tertiary hospital. While awaiting transfer, he converted to NSR. - hep gtt - cardizem gtt @5 - amio gtt - loaded w digoxin 0.5mg @1200, plan 0.25mg @1800 and midnight - Cardio following Lung mass: R perihilar mass 3x3.5 encasing R lower segmental artery and bronchus. Onc consulted, suggest biopsy after hemodynamically stable. - Pulm consulted Concern for esophageal varices during SAHIL: - GI to EGD in AM Elevated trop: peak 0.06, likely 2/2 demand from tachycardia COPD: new emphysema on CT, not on home inhalers or home O2, stable HTN: home lisinopril 10 HLD: hold simvastatin while on dilt, home ASA Allergies: home claritin, singulair Smoker: nicotine replacement offered, cessation advised PPx: hep gtt, will need discussion of DOAC prior to discharge Tele: yes Activity: up ad david FEN: regular diet then NPO@MN, no MIVF Lines: PIV Consults: Cardio, Onc, GI, Pulm Code: Full Dispo: inpatient for refractory SVT, anticipate 1-2 more days, will be homegoing Internal Medicine: Result - Labs CBC & Chem 7: 08/13/19 08:36 08/13/19 08:36 - ABG Interpretation ABG results: PT/INR, D-dimer PT 10.4 Seconds (9.4-12.1) 08/11/19 16:30 D-Dimer 4349 ng/mLFEU (0-500) H 08/11/19 13:33 Consult Discharge Plan - Plan Referrals: Dinora Cyr CNP [Partnered Physician] - (Per the office they will call the patient at home with a follow up appointment) Steve Casey MD [Primary Care Provider] - 08/25/19 2:00 pm
--- NOTE | 2019-08-14 16:55 | Oncology Inp Progress Note ---
Date of Encounter: 08/14/19 Time of Encounter: 08:00 (1) Lung mass Current Visit: Yes Status: Acute Assessment and plan: Rt hilar adenopathy/mass encasing lower lobe bronchi, with SVT, s/p cardioversion, refractory on meds. He is being transferred to outside facility for control of HR. Will follow up outpatient for further evaluation of lung mass with PET imaging/bx. Oncology: Subj Interval history: Pateint was seen bedside this AM. HR 140s. Denied any chest discomfort. Cough since procedure - Constitutional General appearance: no acute distress, obese - Head Head exam: Present: atraumatic, normal inspection - Eye Eye exam: Present: sclera anicteric - Respiratory Respiratory exam: Present: CTAB - Cardiovascular Cardiovascular exam: Present: irregular rhythm, +S1, +S2 - Neurological Exam Neurological exam: Present: alert, CN II-XII intact, oriented X3, no focal deficits - Skin Skin exam: Present: dry, warm Oncology: Obj Data - Labs CBC & Chem 7: 08/13/19 08:36 08/13/19 08:36 Consult Discharge Plan - Plan Referrals: Dinora Cyr CNP [Partnered Physician] - (Per the office they will call the patient at home with a follow up appointment) Steve Casey MD [Primary Care Provider] - 08/25/19 2:00 pm Inpatient Charges Provider: Dr. Kyra Stevens Follow up - Inpatient: [id number]
[2019-08-14] MEDS: Thiamine (B-1) 100 MG, Folic Acid 1 MG, MVI, adult with vitamin K 10 ML in 0.9 % Sodi... IVPB SCH (17:20)
[2019-08-14] MEDS: *HR* Heparin 5,000 UNIT/ML VIAL IVP PRN (17:22)
[2019-08-14] MEDS: Fluticasone Propionate Nasal 50 MCG/SPRAY BOTTLE NS SCH (20:17)
--- NOTE | 2019-08-14 22:04 | Electrocardiograph Report ---
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
[2019-08-15 01:30] LABS: Hematocrit 34.5 % (37.5-50.1); Hemoglobin 11.2 g/dL (12.9-16.9); Mean Corpuscular HGB Conc 32.5 g/dL (31.6-35.5); Mean Corpuscular Hemoglobin 32.8 pg (28.0-33.3); Mean Corpuscular Volume 101.2 fL (83.0-100.0); Mean Platelet Volume 12.5 fL (9.4-12.4); Platelet Count 117 K/mcL (140-400); Red Blood Count 3.41 M/mcL (4.19-5.50); Red Cell Distribution Width 15.9 % (11.5-14.5)
[2019-08-15 01:34] LABS: Alanine Aminotransferase 47 Units/L (7-52); Albumin 3.5 g/dL (3.5-5.7); Albumin/Globulin Ratio 1.5 (1.1-2.2); Alkaline Phosphatase 40 Units/L (34-104); Aspartate Amino Transferase 50 Units/L (13-39); BUN/Creatinine Ratio 21 (6-26); Bilirubin,Direct 0.3 mg/dL (0.0-0.2); Bilirubin,Indirect 0.5 mg/dL (0.0-1.2); Bilirubin,Total 0.8 mg/dL (0.3-1.0); Blood Urea Nitrogen 16 mg/dL (8-23); Calcium 8.7 mg/dL (8.6-10.3); Carbon Dioxide 20 mEq/L (23-29); Chloride 108 mEq/L (98-107); Globulin 2.3 g/dL (2.4-3.5); Glucose 99 mg/dL (70-105); Magnesium 1.5 mg/dL (1.6-2.6); Osmolality,Calculated 291 (280-300); Potassium 3.7 mEq/L (3.5-5.1); Sodium 140 mEq/L (136-145); Total Protein 5.8 g/dL (6.4-8.9); eGFR For African Americans > 60 (> 60); eGFR For Non-African Americans > 60 (> 60)
[2019-08-15] MEDS: Thiamine (B-1) 100 MG TABLET PO SCH (08:12)
[2019-08-15] MEDS: Folic Acid 1 MG TABLET PO SCH (08:13)
[2019-08-15] MEDS: Loratadine 10 MG TABLET PO SCH (08:13)
[2019-08-15] MEDS: Vitamin B Complex/Vit C/Vit E 1 EACH TABLET PO SCH (08:13)
[2019-08-15] MEDS: Aspirin Enteric Coated 81 MG Tablet PO SCH (08:13)
[2019-08-15] MEDS ORDERED: *HR* FentaNYL (PF) 100 MCG/2 ML VIAL ONE (08:44)
--- NOTE | 2019-08-15 08:44 | Anesthesia Evaluation PreOp ---
Date of Encounter: 08/15/19 Time of Encounter: 08:42 - Past History Planned Operation: EGD/Colonoscopy, EBUS Cardiac History: HTN, Hyperlipidemia, Arrhythmia (SVT unresponsive to meds(lopressor, cardiazem and amiodrone)) Pulmonary History: Smoker (57 years), COPD, Other (right lung mass) PIECE DYER History: Denies Any Significant HX Other Medical History: Denies Any Significant HX Anesthesia History: No Prior Anesthetic Complications, Past Anesthesia Alcohol Use: heavy Drug use: none Medications and Allergies Aspirin [Lo-Dose Aspirin EC] 81 mg PO DAILY 08/11/19 [History] Fluticasone Propionate Nasal [Flonase] 50 mcg NS DAILY 08/11/19 [History] Lisinopril [Zestril] 10 mg PO DAILY 08/11/19 [History] Loratadine [Claritin] 10 mg PO DAILY 08/11/19 [History] Montelukast [Singulair] 10 mg PO DAILY 08/11/19 [History] Polyethylene Glycol 3350 [MiraLAX] 17 gm PO DAILY 08/11/19 [History] Simvastatin [Zocor] 40 mg PO HS 08/11/19 [History] Tizanidine HCl [Zanaflex] 2 mg PO TID PRN 08/11/19 [History] Vitamin B Complex [Balanced B-50] 1 each PO DAILY 08/11/19 [History] Allergy/AdvReac Type Severity Reaction Status Date / Time No Known Allergies Allergy Verified 08/11/19 13:49 - Meds/Allergy Pre-op Review Medications Reviewed: Yes Allergies Reviewed: Yes Beta Blockers on Current Med List: No Anesthesia Results - Labs 08/15/19 00:47 08/15/19 00:47 - Imaging EKG: report reviewed (08/13/2019 sinus tachycardia, possible A-flutter, nonspecific abnormality) Additional studies: 08/11/2019 CT/CT angio chest IMPRESSION: 1. No evidence of pulmonary embolism 2. No acute process demonstrated 3. Right infrahilar mass concerning for primary pulmonary malignancy 4. Pulmonary emphysema Anesthesia Exam Vital Signs/O2 Sat/Glucose, Most Recent Temp Pulse Resp BP Pulse Ox 98.2 F 86 18 113/58 94 08/15/19 07:35 08/15/19 07:35 08/15/19 07:35 08/15/19 07:35 08/15/19 07:35 Blood Glucose* 113 Height: 5'11''/1.8m Weight: 210 lbs/95.3 kg NPO (# of Hours): 8 Pain Scale: 0 Pain Scale Used: Numeric (1 - 10) - HEENT Pupil (Motor): EOMI Mallampati: II Teeth: Poor dentition Oral Opening: Greater than 3 - PIECE DYER LOC: Oriented PIECE DYER Motor: Normal RUE, Normal LUE, Normal RLE, Normal LLE, Normal Face PIECE DYER Sensory: Normal: RUE, LUE, RLE, LLE, Face - Cardiac Rhythm: Regular Murmur: None - Pulmonary Breath Sounds: bilateral Clear Respiratory Effort: Symmetrical Anesthesia Assess/Plan ASA Score: 4 Level of consciousness: Cooperative, Oriented, Tranquil Anesthetic Plan: General Monitoring Plan: Standard Monitors Recovery Plan: PACU
[2019-08-15] MEDS ORDERED: Lidocaine -MPF 4% 5 ML AMPUL ONE (08:45)
[2019-08-15] MEDS ORDERED: *HR* Propofol 200 MG/20 ML VIAL IVP ONE (09:03)
[2019-08-15] MEDS ORDERED: *HR* PHENYLEPHRINE 1,000 MCG/10 ML SYRINGE IVP ONE (09:07)
[2019-08-15] MEDS ORDERED: EPHEDrine 50 MG/ML VIAL ONE (09:14)
[2019-08-15] MEDS ORDERED: *HR* Succinylcholine 200 MG/10 ML VIAL IVP ONE (09:32)
[2019-08-15] MEDS ORDERED: Lidocaine -MPF 2% 2 ML VIAL ONE (09:32)
--- NOTE | 2019-08-15 10:53 | Pulmonology Consult Note ---
<Haris Gaitan - Last Filed: 08/15/19 14:09> Date of Encounter: 08/15/19 Time of Encounter: 06:45 (estimated) Assessment and Plan (1) COPD (chronic obstructive pulmonary disease) with emphysema Current Visit: Yes Status: Acute Qualifiers: Qualified Code(s): J43.9 - Emphysema, unspecified (2) Lung mass Current Visit: Yes Status: Acute (3) Atrial flutter with rapid ventricular response Current Visit: Yes Status: Acute History of Present Illness History of present illness: Chart review and patient-provided information: Mr. Whittaker is a 73-year-old male who presented to the ED on 08/11 from his family doctor after being found to have an elevated heart rate. Past medical history includes hypertension, hyperlipidemia. COPD however medical record search did not result in discovery of PFTs- patient believes his diagnosis is unofficial. Tobacco use. Admitted and diagnosed with a-flutter with RVR. In the ED an initial suspicion for PE resulted in a CTA. No PE was discovered however a right infrahilar mass was discovered. Pulmonology has been consulted for EBUS aspiration. Smoker from age [age], 1.5 packs per day. Today: Feels better than yesterday. He denies any symptoms. He agrees that his breathing is no different than usual for him. Past Med Surg Social Fam HX - Past Medical History Medical history: hyperlipidemia, hypertension Psychiatric history: no psych history - Past Surgical History Surgical History: hip replacement - Social History Smoking Status: Current every day smoker Packs per day: 1.5 Smokeless Tobacco Status: No Alcohol use: heavy Drug use: none Medications and Allergies Aspirin [Lo-Dose Aspirin EC] 81 mg PO DAILY 08/11/19 [History] Fluticasone Propionate Nasal [Flonase] 50 mcg NS DAILY 08/11/19 [History] Lisinopril [Zestril] 10 mg PO DAILY 08/11/19 [History] Loratadine [Claritin] 10 mg PO DAILY 08/11/19 [History] Montelukast [Singulair] 10 mg PO DAILY 08/11/19 [History] Polyethylene Glycol 3350 [MiraLAX] 17 gm PO DAILY 08/11/19 [History] Simvastatin [Zocor] 40 mg PO HS 08/11/19 [History] Tizanidine HCl [Zanaflex] 2 mg PO TID PRN 08/11/19 [History] Vitamin B Complex [Balanced B-50] 1 each PO DAILY 08/11/19 [History] Apixaban [Eliquis] 5 mg PO BID #60 tablet 08/15/19 [Rx] Allergy/AdvReac Type Severity Reaction Status Date / Time No Known Allergies Allergy Verified 08/11/19 13:49 All Systems: The remainder of the systems were reviewed and are negative Review of Systems: Admits: Chills. Denies: Weight loss, rash, abdominal pain, nausea, vomiting, hematochezia, dysu bouchra, hematuria, syncope. *some information auto-populated into note* Physical Examination Vital Signs: Vital Signs, Last 4 Hours Temp Pulse Resp BP Pulse Ox 08/15/19 09:21 98.3 F 73 16 138/73 95 08/15/19 07:35 98.2 F 86 18 113/58 94 Objective PE Gen.: Elderly male. No acute distress Skin: Good turgor Eyes: Moist. Anicteric Cardiac: Regular rhythm. Rate 73 on monitor. No obvious murmurs gallops rubs. Occasional S4 Respiratory: Minimal crackles at bases. Diminished air movement throughout. 1 wheeze heard on right anterior upper field. Extremities: Capillary refill less than 2 seconds bilateral upper extremities. No bilateral lower extremity edema. Psych: Appropriate mood and behavior. Answers questions coherently A/P #Infrahilar mass Right sided In the setting of COPD and smoking history CTA 08/11 -Plan for EBUS aspiration #COPD with emphysema Cannot find PFTs in Record. Patient believes his diagnosis is unofficial. Denies home therapy for COPD. Panacinar and centrilobular emphysematous changes on CT -No acute therapy. Continue to monitor #Aflutter -per cardiology and primary #Heart failure with preserved ejection fraction S4 heard on exam -per cardiology and primary Results - Laboratory Findings CBC and BMP: 08/15/19 00:47 08/15/19 00:47 PT/INR, D-dimer PT 10.4 Seconds (9.4-12.1) 08/11/19 16:30 D-Dimer 4349 ng/mLFEU (0-500) H 08/11/19 13:33 Abnormal lab findings: Abnormal lab results RBC 3.41 M/mcL (4.19-5.50) L 08/15/19 00:47 Hgb 11.2 g/dL (12.9-16.9) L 08/15/19 00:47 Hct 34.5 % (37.5-50.1) L 08/15/19 00:47 MCV 101.2 fL (83.0-100.0) H 08/15/19 00:47 MCH 33.8 pg (28.0-33.3) H 08/13/19 08:36 RDW 15.9 % (11.5-14.5) H 08/15/19 00:47 Plt Count 117 K/mcL (140-400) L 08/15/19 00:47 MPV 12.5 fL (9.4-12.4) H 08/15/19 00:47 D-Dimer 4349 ng/mLFEU (0-500) H 08/11/19 13:33 Heparin Anti-Xa, Unfract 0.26 IU/mL (0.30-0.70) L 08/14/19 16:05 Chloride 108 mEq/L (98-107) H 08/15/19 00:47 Carbon Dioxide 20 mEq/L (23-29) L 08/15/19 00:47 BUN 24 mg/dL (8-23) H 08/13/19 08:36 BUN/Creatinine Ratio 27 (6-26) H 08/13/19 08:36 Glucose 116 mg/dL (70-105) H 08/13/19 08:36 POC Glucose 113 mg/dL (70-99) H 08/13/19 05:56 Calcium 8.5 mg/dL (8.6-10.3) L 08/12/19 00:26 Magnesium 1.5 mg/dL (1.6-2.6) L 08/15/19 00:47 Direct Bilirubin 0.3 mg/dL (0.0-0.2) H 08/15/19 00:47 AST 50 Units/L (13-39) H 08/15/19 00:47 Troponin I 0.05 ng/mL (< 0.04) H* 08/12/19 00:26 B-Natriuretic Peptide 296 pg/mL (Less than 100) H 08/12/19 00:26 Serum Total Protein 5.8 g/dL (6.4-8.9) L 08/15/19 00:47 Globulin 2.3 g/dL (2.4-3.5) L 08/15/19 00:47 HDL Cholesterol 85 mg/dL (40-59) H 08/12/19 00:26 - Clinical Findings Intake & Output: Intake & Output 08/14/19 08/15/19 08/15/19 23:59 07:59 15:59 Intake Total 302 / 720.8 Balance 302 / 600.8 Weight 95.3 kg Consult Discharge Plan - Plan Referrals: Dinora Cyr CNP [Partnered Physician] - (Per the office they will call the patient at home with a follow up appointment) Steve Casey MD [Primary Care Provider] - 08/25/19 2:00 pm Prescriptions: Apixaban [Eliquis] 5 mg PO BID #60 tablet Prescription Printed <Wm Israel S - Last Filed: 08/15/19 19:13> Date of Encounter: 08/15/19 All Systems: The remainder of the systems were reviewed and are negative Physical Examination Vital Signs: Vital Signs, Last 4 Hours Temp Pulse Resp BP Pulse Ox 08/15/19 16:14 97.9 F 73 16 110/66 94 Results - Laboratory Findings CBC and BMP: 08/15/19 00:47 08/15/19 00:47 PT/INR, D-dimer PT 10.4 Seconds (9.4-12.1) 08/11/19 16:30 D-Dimer 4349 ng/mLFEU (0-500) H 08/11/19 13:33 Abnormal lab findings: Abnormal lab results RBC 3.41 M/mcL (4.19-5.50) L 08/15/19 00:47 Hgb 11.2 g/dL (12.9-16.9) L 08/15/19 00:47 Hct 34.5 % (37.5-50.1) L 08/15/19 00:47 MCV 101.2 fL (83.0-100.0) H 08/15/19 00:47 MCH 33.8 pg (28.0-33.3) H 08/13/19 08:36 RDW 15.9 % (11.5-14.5) H 08/15/19 00:47 Plt Count 117 K/mcL (140-400) L 08/15/19 00:47 MPV 12.5 fL (9.4-12.4) H 08/15/19 00:47 D-Dimer 4349 ng/mLFEU (0-500) H 08/11/19 13:33 Heparin Anti-Xa, Unfract 0.15 IU/mL (0.30-0.70) L 08/15/19 13:26 Chloride 108 mEq/L (98-107) H 08/15/19 00:47 Carbon Dioxide 20 mEq/L (23-29) L 08/15/19 00:47 BUN 24 mg/dL (8-23) H 08/13/19 08:36 BUN/Creatinine Ratio 27 (6-26) H 08/13/19 08:36 Glucose 116 mg/dL (70-105) H 08/13/19 08:36 POC Glucose 113 mg/dL (70-99) H 08/13/19 05:56 Calcium 8.5 mg/dL (8.6-10.3) L 08/12/19 00:26 Magnesium 1.5 mg/dL (1.6-2.6) L 08/15/19 00:47 Direct Bilirubin 0.3 mg/dL (0.0-0.2) H 08/15/19 00:47 AST 50 Units/L (13-39) H 08/15/19 00:47 Troponin I 0.05 ng/mL (< 0.04) H* 08/12/19 00:26 B-Natriuretic Peptide 296 pg/mL (Less than 100) H 08/12/19 00:26 Serum Total Protein 5.8 g/dL (6.4-8.9) L 08/15/19 00:47 Globulin 2.3 g/dL (2.4-3.5) L 08/15/19 00:47 HDL Cholesterol 85 mg/dL (40-59) H 08/12/19 00:26 - Microbiology Findings Microbiology Findings: Microbiology, Last 48 Hours 08/15/19 11:03 Fungal Culture - Preliminary Right Lower Lobe Lung Culture is incubating. 08/15/19 11:03 Respiratory Culture - Preliminary Right Lower Lobe Lung Culture is incubating. - Clinical Findings Intake & Output: Intake & Output 08/15/19 08/15/19 08/15/19 07:59 15:59 23:59 Intake Total 180 / 209 Balance 180 Weight 95.3 kg - Attending Attestation I saw and evaluated this patient and my medical decision-making was reviewed with the Resident Physician. I agree with the documented findings, disposition and treatment plan as described except to the extent set forth below. We independently had [id number] contact with the patient Patient seen and examined at bedside Labs, radiology, chart personally reviewed. Management was reviewed during multidisciplinary critical care rounds. Patient with background of COPD with emphysematous changes came to the hospital for supraventricular tachycardia/atrial flutter patient was in ICU transfer to the floor patient now is rate controlled with AV shona agents. Pulmonary was consult that for evaluation of this infrahilar mass patient underwent endo bronchial ultrasound with transbronchial needle aspiration which are prelim findings shows non-small cell lung cancer. Will update the patient when he is more awake.
--- NOTE | 2019-08-15 11:08 | Cardiology Progress Note ---
Date of Encounter: 08/15/19 Time of Encounter: 11:00 Assessment and Plan (1) Atrial flutter Current Visit: Yes Status: Acute Per Cardiology: Seen by EP yesterday with recommendations for transfer due to inability for SAHIL and cardioversion completion for a flutter with RVR, however patient converted to sinus rhythm while awaiting transfer. Remains on amiodarone gtt. Discussed and reviewed with Dr. Nunn, will initiate amiodarone 200 mg by mouth daily and Cardizem CD 120 mg by mouth daily. Current systolic blood pressures in the 110s, we will decrease lisinopril from 10 mg by mouth daily to 5 mg by mouth daily and monitor blood pressure heart rate. Regarding long-term anticoagulation, has CHADsVasc=3. Currently on IV heparin drip and H&H appears stable. Currently undergoing EGD and colonoscopy, will await GI recommendations regarding long-term anticoagulation. Qualifiers: Atrial flutter type: unspecified Qualified Code(s): I48.92 - Unspecified atrial flutter Discussion w patient/family: The assessment and plan as outlined above was discussed with the patient and/or family members who expressed understanding and agreement. All questions were answered. Thank you for involving us in the care of your patient. Please call with any questions. Subjective Principal diagnosis: Aflutter Interval history: Patient off floor for EGD, colonoscopy, and bronchoscopy. Discussed with nursing staff and patient on amiodarone drip and heparin drip. We will attempt to reevaluate once returns to floor. Patient diary with return to floor. He denies any chest pain, short of breath, palpitations. Denies any active bleeding or blood loss. Objective Vital Signs, Last 4 Hours Temp Pulse Resp BP Pulse Ox 08/15/19 09:21 98.3 F 73 16 138/73 95 08/15/19 07:35 98.2 F 86 18 113/58 94 General: Conversant, No Apparent Distress HEENT: Atraumatic, Normocephaly, Mucus Membranes Moist Neck: No JVD, Normal carotid pulses Cardiac: Reg Rate and Rhythm, Normal S1 and S2, No Murmur Lungs: Normal Breath Sounds, No Wheeze, Rales, Rhonchi Neuro: Alert and responsive, No focal deficits noted Abdomen: Soft, Non-Tender Skin: No rashes noted on visualized skin Musculoskeletal: No Chest Wall Tenderness Extremities: No Clubbing, No Cyanosis, No Edema, Normal Pulses Results 08/15/19 00:47 08/15/19 00:47 Lab Results Laboratory Tests 08/11/19 08/11/19 08/11/19 13:33 13:33 13:33 Hgb Hct Plt Count INR D-Dimer 4349 H Creatinine Est GFR (Non-Af Amer) Magnesium AST ALT Troponin I 0.06 H* B-Natriuretic Peptide LDL Cholesterol, Calc TSH 2.183 08/11/19 08/12/19 08/12/19 16:30 00:26 00:26 Hgb Hct Plt Count INR 0.9 D-Dimer Creatinine Est GFR (Non-Af Amer) Magnesium AST ALT Troponin I 0.05 H* B-Natriuretic Peptide 296 H LDL Cholesterol, Calc 64 TSH 08/15/19 08/15/19 00:47 00:47 Hgb 11.2 L Hct 34.5 L Plt Count 117 L INR D-Dimer Creatinine 0.78 Est GFR (Non-Af Amer) > 60 Magnesium 1.5 L AST 50 H ALT 47 Troponin I B-Natriuretic Peptide LDL Cholesterol, Calc TSH ITS Impressions Chest X-Ray 08/11/19 13:45 IMPRESSION: Minimal bibasilar airspace disease, likely atelectasis in the absence of clinical signs of pneumonia. D/ / Estefani Luna MD / Estefani Luna MD Interpreting Provider: Estefani Luna MD Chest CTA 08/11/19 15:45 IMPRESSION: 1. No evidence of pulmonary embolism 2. No acute process demonstrated 3. Right infrahilar mass concerning for primary pulmonary malignancy 4. Pulmonary emphysema D/ / Keaton Finley MD / Keaton Finley MD Interpreting Provider: Keaton Finley MD Transesophageal w/Cardioversion 08/12/19 14:46 Impressions: Procedure cancelled due to patient agitation. Recommend rescheduling under MAC with Anesthesia guidance. Findings: Liver Ultrasound 08/14/19 18:15 IMPRESSION: Biliary sludge, without shadowing stones. Increased a patent echogenicity compatible with hepatic steatosis and corresponding to recent CT. By CT, average density 12 Hounsfield units. D/ / Tae Morelos MD / Tae Morelos MD Interpreting Provider: Tae Morelos MD Echocardiogram 08/14/19 19:55 Impressions: LVEF 60-65%. Moderate left ventricular diastolic dysfunction. Normal right ventricular structure and function. Densely calcified aortic valve leaflets. Mild-moderate aortic stenosis by Doppler (PV 2.9m/s, MG 20 mmHg, DI 0.36, YANDEL 1.1cm2). Mild-moderate mitral regurgitation. Mild tricuspid regurgitation. No pulmonary hypertension. Left Ventricular Wall Motion: Rest Echo Findings All wall segments showed normal motion. Findings: Study Quality * Technically adequate exam. ECG Findings * Normal sinus rhythm. Left Ventricle * LVEF 60-65%. * Normal LV chamber size, wall thickness and function. * Moderate left ventricular diastolic dysfunction. Right Ventricle * Normal right ventricular structure and function. Left Atrium * Moderately dilated left atrium. Right Atrium * Normal right atrial size. Aortic Valve * No aortic regurgitation. * Densely calcified aortic valve leaflets. * Aortic valve leaflet morphology not well visualized. * Mild-moderate aortic stenosis by Doppler (PV 2.9m/s, MG 20 mmHg, DI 0.36, YANDEL 1.1cm2). Mitral Valve * No mitral stenosis. * Mild-moderate mitral regurgitation. * Mildly calcified mitral valve leaflets. Tricuspid Valve * Normal tricuspid valve structure. * Mild tricuspid regurgitation. * Estimated RA pressure is 3 mmHg. * Estimated RVSP is 27 mmHg. * No pulmonary hypertension. Pulmonic Valve * Pulmonic valve is not well visualized. * No pulmonic stenosis. * No pulmonic regurgitation. Pulmonary Artery * Pulmonary artery not well visualized. Aorta * Normally sized aortic root. Pericardium * There is no pericardial effusion present. Interatrial Septum * No evidence of PFO by color Doppler. IVC * Normal IVC dimensions and inspiratory collapse. Active Medications Acetaminophen (Tylenol) 650 mg PO Q6HR PRN PRN Reason: Mild Pain/Fever Stop: 02/10/20 17:44 Aspirin (Aspirin Ec) 81 mg PO DAILY [facility] Stop: 02/11/20 09:01 Last Admin: 08/15/19 08:13 Dose: 81 mg Documented by: Fluticasone Propionate (Flonase) 50 mcg NS HS [facility]; Protocol Stop: 02/11/20 09:01 Last Admin: 08/14/19 20:17 Dose: 50 mcg Documented by: Folic Acid (Folic Acid) 1 mg PO DAILY [facility] Stop: 02/14/20 09:01 Last Admin: 08/15/19 08:13 Dose: 1 mg Documented by: Heparin Sodium (Porcine) (Heparin) 6,800 unit 70 unit/kg (6800 unit) IVP Q6HR PRN PRN Reason: SEE COMMENTS Stop: 02/10/20 16:31 Heparin Sodium (Porcine) (Heparin) 3,400 unit 35 unit/kg (3400 unit) IVP Q6H PRN PRN Reason: SEE COMMENTS Stop: 02/10/20 16:31 Last Admin: 08/14/19 17:22 Dose: 3,400 unit Documented by: Amiodarone HCl/Dextrose (Amiodarone Drip Premix 360mg/200ml) 360 mg in 200 mls @ 16.667 mls/hr IVC CONT [facility] Stop: 02/11/20 00:46 Last Admin: 08/14/19 21:22 Dose: 0.5 mg/min, 16.7 mls/hr Documented by: Heparin Sodium/Dextrose (Heparin 25,000 Unit/250 Ml D5w) 25,000 unit in 250 mls @ 13.526 mls/hr IVC .[id number] [facility]; Protocol Stop: 02/10/20 16:31 Last Titration: 08/14/19 17:06 Dose: 14.11 unit/kg/hr, 13.6 mls/hr Documented by: Lidocaine (Lidocaine Viscous Oral Soln) 15 ml MM ONCE PRN PRN Reason: Lubricant of oropharynx Last Admin: 08/13/19 12:50 Dose: 15 ml Documented by: Lisinopril (Zestril) 10 mg PO DAILY [facility]; Protocol Stop: 02/11/20 09:01 Last Admin: 08/15/19 08:12 Dose: 10 mg Documented by: Loratadine (Claritin) 10 mg PO DAILY [facility] Stop: 02/11/20 09:01 Last Admin: 08/15/19 08:13 Dose: 10 mg Documented by: Lorazepam (Ativan) 1 mg IVP Q1H PRN PRN Reason: Alcohol Withdrawal Stop: 02/11/20 16:23 Lorazepam (Ativan) 2 mg IVP Q4HR PRN PRN Reason: CIWA Score of 10-21 Stop: 02/11/20 16:23 Last Admin: 08/12/19 16:43 Dose: 2 mg Documented by: Lorazepam (Ativan) 4 mg IVP Q4HR PRN PRN Reason: CIWA Score of 22-45 Stop: 02/11/20 16:23 Montelukast Sodium (Singulair) 10 mg PO QPM [facility] Stop: 02/11/20 18:01 Last Admin: 08/14/19 16:03 Dose: 10 mg Documented by: Naloxone HCl (Narcan) 0.4 mg IVP Q2MPRN PRN PRN Reason: SEE COMMENTS Stop: 02/10/20 17:44 Ondansetron HCl (Zofran) 4 mg IVP Q8HR PRN PRN Reason: Nausea And Vomiting Stop: 02/10/20 17:44 Polyethylene Glycol (Miralax) 17 gm PO DAILY [facility] Stop: 02/11/20 09:01 Last Admin: 08/15/19 08:13 Dose: Not Given Documented by: Simvastatin (Zocor) 20 mg PO HS [facility]; Protocol Stop: 02/14/20 21:01 Thiamine HCl (Vitamin B-1) 100 mg PO DAILY [facility] Stop: 02/14/20 09:01 Last Admin: 08/15/19 08:12 Dose: 100 mg Documented by: Vitamin B Complex/Vit C/Vit E (Stresstab) 1 each PO DAILY [facility] Stop: 02/14/20 09:01 Last Admin: 08/15/19 08:13 Dose: 1 each Documented by: - Imaging and Cardiology Chest Xray: report reviewed Echo: report reviewed Consult Discharge Plan - Plan Referrals: Dinora Cyr CNP [Partnered Physician] - (Per the office they will call the patient at home with a follow up appointment) Steve Casey MD [Primary Care Provider] - 08/25/19 2:00 pm Cardiac Rehab - Cardiac Rehab Cardiac Rehab: Phase I consult completed. Patient was educated on why Cardiac Rehabilitation is beneficial to his/her health. Participating in a cardiac rehabilitation can improve the following: strengthen your heart, improve ejection fraction, weight reduction, decrease cholesterol levels, lower blood pressure, lower blood sugar, improve stamina, and enhance self-image. If he/she has any questions, they were instructed to call [facility] at [phone].
--- NOTE | 2019-08-15 11:23 | Anesthesia Evaluation Post Op ---
Date of Encounter: 08/15/19 Time of Encounter: 11:23 - Vital Signs Vital Signs: Vital Signs/O2 Sat, Most Current Temp Pulse Resp BP Pulse Ox 100.4 F H 80 16 113/72 96 08/15/19 10:58 08/15/19 11:18 08/15/19 11:18 08/15/19 11:18 08/15/19 11:18 - Lungs Lungs: Clear Ascult./Percussion - Airway Airway: Non-obstructed - Cardiovascular Regular Rate - Mental Status Mental Status: Alert & Oriented, Answers Appropriately - Pain Pain Scale: 0 Pain Scale used: Numeric (1 - 10) - Nausea Vomiting Nausea Vomiting: Not Present - Hydration Hydration: Ice chips, Has not voided - Discharge PostOp Status: Transfer Patient to floor
[2019-08-15] MEDS: *HR* Amiodarone 200 MG TABLET PO SCH (12:02)
[2019-08-15] MEDS: Diltiazem CD (24hr) 120 MG CAPSULE PO SCH (12:03)
--- NOTE | 2019-08-15 12:49 | Internal Med Progress Note ---
Hospitalist Progress Note - Encounter Date of Encounter: 08/15/19 Time of Encounter: 10:30 - Subjective Interval History: Underwent EGD and bronchoscopy uneventfully this morning. Denies any chest pain, palpitation, sputum production, or hemoptysis. - Exam Vitals: Temp Pulse Resp BP Pulse Ox 97.9 F 77 18 127/76 93 08/15/19 11:47 08/15/19 11:47 08/15/19 11:47 08/15/19 11:47 08/15/19 11:47 Exam: General: Alert and oriented 3, not in distress Thoracic: Normal breath sounds b/l, no wheezing or crackles Cardio: Normal S1 and S2, regular rate and normal rhythm Abdomen: Soft, nontender Extremities: Warm, well perfused. DP pulses 2+ b/l. No edema Skin: Intact. No rashes, bruises, or ulcers Neuro: Awake, fully oriented. Good memory, concentration, attention. Speech fluent. - Assessment and Plan (1) Atrial flutter with rapid ventricular response Current Visit: Yes Status: Acute (2) Lung mass Current Visit: Yes Status: Acute (3) Esophageal varices Current Visit: Yes Status: Ruled-out (4) Elevated troponin Current Visit: Yes Status: Acute (5) COPD (chronic obstructive pulmonary disease) with emphysema Current Visit: Yes Status: Acute - Summary of Assessment and Plan Summary of Assessment and Plan: Gerardo Whittaker is a 73 M w hx HTN, HLD, COPD, smoker, who p/w regular tachycardia at 150s concerning for SVT likely AFL 2:1. A-Flutter RVR: regular around 150 concerning for AFL w 2:1 block. No response to iv lopressor, and unable to uptitrate cardizem above 5mg due to hypotension. On amio and has rec'd two boluses plus drip w/o improvement. Attempted DCCV 08/12 but unable to sedate, and attempted 08/13 but unable to get good window to ensure no LA thrombus. Cardio and EP suggested transferring the pt to tertiary hospital but while awaiting for transfer after dig loading, he converted to NSR. - will transition to PO amiodarone and diltiazem, appreciate cardiology input - EGD finding of non-bleeding gastric and duodenal ulcer with no stigmata of bleeding. Will await for their rec regarding long-term AC - continue hep gtt, will stratton check NOACs Lung mass: R perihilar mass 3x3.5 encasing R lower segmental artery and bronchus. - underwent bronchoscopy with FNA today, prelim cytology suggestive of malignancy - follow up with pulm and oncology as outpatient Concern for esophageal varices during SAHIL: - no evidence of esophageal varices on EGD - US liver shows hepatic steatosis without obvious evidence of cirrhosis Elevated trop: peak 0.06, Echo with preserved EF. Likely 2/2 demand from tachycardia COPD: new emphysema on CT, not on home inhalers or home O2, stable. Follow up with Pulmonology as outpatient HTN: resume home meds HLD: on decreased dose of simvastatin with Amiodarone. Smoker: nicotine replacement offered, cessation advised - Time Spent with Patient Total time spent is greater than 50% in coordination of care (as documented) at patient's floor/unit and/or counseling patient: 25 - 35 minutes Plan of Care Discussed with: patient Internal Medicine: Result - Labs CBC & Chem 7: 08/15/19 00:47 08/15/19 00:47 Labs: Short CBC 08/15/19 Range/Units 00:47 WBC 8.0 (4.3-11.1) K/mcL Hgb 11.2 L (12.9-16.9) g/dL Hct 34.5 L (37.5-50.1) % Plt Count 117 L (140-400) K/mcL BMP 08/15/19 00:47 Sodium 140 Potassium 3.7 Chloride 108 H Carbon Dioxide 20 L BUN 16 Creatinine 0.78 Glucose 99 Calcium 8.7 Liver Function 08/15/19 Range/Units 00:47 Total Bilirubin 0.8 (0.3-1.0) mg/dL Direct Bilirubin 0.3 H (0.0-0.2) mg/dL AST 50 H (13-39) Units/L ALT 47 (7-52) Units/L Alkaline Phosphatase 40 (34-104) Units/L Albumin 3.5 (3.5-5.7) g/dL - ABG Interpretation ABG results: PT/INR, D-dimer PT 10.4 Seconds (9.4-12.1) 08/11/19 16:30 D-Dimer 4349 ng/mLFEU (0-500) H 08/11/19 13:33 - Impressions Impressions Liver Ultrasound 08/14/19 18:15 IMPRESSION: Biliary sludge, without shadowing stones. Increased a patent echogenicity compatible with hepatic steatosis and corresponding to recent CT. By CT, average density 12 Hounsfield units. D/ / Tae Morelos MD / Tae Morelos MD Interpreting Provider: Tae Morelos MD Echocardiogram 08/14/19 19:55 Impressions: LVEF 60-65%. Moderate left ventricular diastolic dysfunction. Normal right ventricular structure and function. Densely calcified aortic valve leaflets. Mild-moderate aortic stenosis by Doppler (PV 2.9m/s, MG 20 mmHg, DI 0.36, YANDEL 1.1cm2). Mild-moderate mitral regurgitation. Mild tricuspid regurgitation. No pulmonary hypertension. Left Ventricular Wall Motion: Rest Echo Findings All wall segments showed normal motion. Findings: Study Quality * Technically adequate exam. ECG Findings * Normal sinus rhythm. Left Ventricle * LVEF 60-65%. * Normal LV chamber size, wall thickness and function. * Moderate left ventricular diastolic dysfunction. Right Ventricle * Normal right ventricular structure and function. Left Atrium * Moderately dilated left atrium. Right Atrium * Normal right atrial size. Aortic Valve * No aortic regurgitation. * Densely calcified aortic valve leaflets. * Aortic valve leaflet morphology not well visualized. * Mild-moderate aortic stenosis by Doppler (PV 2.9m/s, MG 20 mmHg, DI 0.36, YANDEL 1.1cm2). Mitral Valve * No mitral stenosis. * Mild-moderate mitral regurgitation. * Mildly calcified mitral valve leaflets. Tricuspid Valve * Normal tricuspid valve structure. * Mild tricuspid regurgitation. * Estimated RA pressure is 3 mmHg. * Estimated RVSP is 27 mmHg. * No pulmonary hypertension. Pulmonic Valve * Pulmonic valve is not well visualized. * No pulmonic stenosis. * No pulmonic regurgitation. Pulmonary Artery * Pulmonary artery not well visualized. Aorta * Normally sized aortic root. Pericardium * There is no pericardial effusion present. Interatrial Septum * No evidence of PFO by color Doppler. IVC * Normal IVC dimensions and inspiratory collapse. Consult Discharge Plan - Plan Referrals: Dinora Cyr, TIME CHECKER [Partnered Physician] - (Per the office they will call the patient at home with a follow up appointment) Steve Casey MD [Primary Care Provider] - 08/25/19 2:00 pm Prescriptions: Apixaban [Eliquis] 5 mg PO BID #60 tablet Prescription Printed
[2019-08-15] MEDS: Heparin 25,000 UNIT/250 ML D5W 25,000 UNIT/250 ML IV.SOLN IVC SCH (13:03)
--- NOTE | 2019-08-15 14:28 | Event Note ---
Date of Encounter: 08/15/19 Time of Encounter: 14:00 Patient underwent the endoscopy yesterday which did not show any evidence of varices. He had some nonbleeding gastric ulcers with no stigma of bleeding. He also had one nonbleeding duodenal ulcer. From the GI standpoint patient is clinically ok to be mcfp anticoagulated for his A flutter-RVR.
[2019-08-15] MEDS: *HR* Heparin 5,000 UNIT/ML VIAL IVP PRN (14:29)
--- NOTE | 2019-08-15 15:42 | Event Note ---
Date of Encounter: 08/15/19 Time of Encounter: 15:38 - Cardiology Event Note Pt in SR. Recommend starting eliquis when able from procedure/GI standpoint. Cardiology will sign off. Out-pt f/u will be coordinated. Please call with questions.
[2019-08-15 19:38] LABS: Appearance of Body Fluid Cloudy (Clear); Source of Body Fluid Right lower lung lob; Volume of Body Fluid 20 mL
[2019-08-15] MEDS: Fluticasone Propionate Nasal 50 MCG/SPRAY BOTTLE NS SCH (22:00)
[2019-08-16 02:56] LABS: Basophils % 0.5 %; Eosinophils # 0.3 K/mcL (0.0-0.6); Eosinophils % 3.9 %; Hematocrit 31.7 % (37.5-50.1); Hemoglobin 10.6 g/dL (12.9-16.9); Immature Granulocytes % 0.2 % (0-4); Lymphocytes # 1.7 K/mcL (0.6-4.6); Lymphocytes % 21.5 %; Mean Corpuscular HGB Conc 33.4 g/dL (31.6-35.5); Mean Corpuscular Hemoglobin 33.7 pg (28.0-33.3); Mean Corpuscular Volume 100.6 fL (83.0-100.0); Mean Platelet Volume 11.8 fL (9.4-12.4); Monocytes # 0.8 K/mcL (0.0-1.3); Neutrophils # 5.1 K/mcL (1.6-8.9); Platelet Count 132 K/mcL (140-400); Red Blood Count 3.15 M/mcL (4.19-5.50); Red Cell Distribution Width 15.8 % (11.5-14.5); Segmented Neutrophils % 63.9 %
[2019-08-16 03:11] LABS: BUN/Creatinine Ratio 18 (6-26); Blood Urea Nitrogen 17 mg/dL (8-23); Calcium 8.3 mg/dL (8.6-10.3); Carbon Dioxide 23 mEq/L (23-29); Chloride 107 mEq/L (98-107); Glucose 98 mg/dL (70-105); Magnesium 1.6 mg/dL (1.6-2.6); Osmolality,Calculated 288 (280-300); Potassium 3.4 mEq/L (3.5-5.1); Sodium 138 mEq/L (136-145); eGFR For African Americans > 60 (> 60); eGFR For Non-African Americans > 60 (> 60)
[2019-08-16] MEDS: Loratadine 10 MG TABLET PO SCH (09:08)
[2019-08-16] MEDS: Vitamin B Complex/Vit C/Vit E 1 EACH TABLET PO SCH (09:08)
[2019-08-16] MEDS: Aspirin Enteric Coated 81 MG Tablet PO SCH (09:08)
[2019-08-16] MEDS: Diltiazem CD (24hr) 120 MG CAPSULE PO SCH (09:08)
[2019-08-16] MEDS: *HR* Amiodarone 200 MG TABLET PO SCH (09:09)
[2019-08-16] MEDS: Thiamine (B-1) 100 MG TABLET PO SCH (09:09)
[2019-08-16] MEDS: Folic Acid 1 MG TABLET PO SCH (09:09)
[2019-08-16] MEDS: Potassium Chloride Elixir 20 MEQ/15 ML UDC PO SCH ×2 (09:11→12:32)
--- NOTE | 2019-08-16 10:05 | Discharge Summary ---
- NOTES TO OUTPATIENT PROVIDER Notes to Outpatient Provider: Follow-up with Pulmonology, Oncology, Cardiology, and GI as outpatient. Orders not resulted at time of discharge: Pending orders 08/15/19 11:03 AFB Culture, Respiratory [TB] Routine Culture,Respiratory,w Gram St [RM] Routine Fungal Culture [MYC] Routine 08/15/19 11:04 Cytology [PTH] Routine 08/15/19 11:10 Cytology [PTH] Routine Date of Encounter: 08/16/19 Time of Encounter: 07:30 - Discharge Diagnosis (1) Atrial flutter with rapid ventricular response Priority: Primary Status: Acute (2) Lung mass Priority: Secondary Status: Acute (3) Esophageal varices Priority: Secondary Status: Ruled-out Qualifiers: Esophageal varices type: unspecified type Esophageal varices bleeding: without bleeding Qualified Code(s): I85.00 - Esophageal varices without bleeding (4) Elevated troponin Priority: Secondary Status: Acute (5) COPD (chronic obstructive pulmonary disease) with emphysema Priority: Secondary Status: Acute Qualifiers: Qualified Code(s): J43.9 - Emphysema, unspecified Hospital course: Mr. Whittaker is a 73 year old male with history of hypertension, hyperlipidemia, COPD, who was admitted for new onset of Afluter with RVR. Refractory to bb and cardizem and developed hypotension on those meds. Started on amiodarone gtt as a result with minimal effect on HR hence underwent 2 attempts at SAHIL/DCCV on 08/12 and 08/13 without success. He was about to be transferred to tertiary hospital but after dig loading, he converted to NSR and maintained his rhythm on PO Amiodarone and PO diltiazem. AC transitioned to PO Eliquis. He was also noted to have incidental finding of R hilar mass for which he underwent Bronchoscopy with FNA; prelim result was suggestive of malignancy and he will need to follow up with Pulm and oncology as outpatient. During SAHIL, there was a concern for possible esophageal varices but it was not found on EGD; instead, there were nonbleeding gastric and duodenal ulcers and there was no contraindication for long-term anticoagulation. He is started on PPI and will need to follow-up with GI as an outpatient. Discharge discussed with: patient, nurse, search consultant - Time Spent with Patient Total time spent providing and/or coordinating discharge services: 35 mins - Discharge Medications Prescriptions: New Apixaban [Eliquis] 5 mg PO BID #60 tablet Diltiazem CD (24hr) [Cardizem CD] 120 mg PO DAILY #30 cap.er.24h Amiodarone [Cordarone] 200 mg PO DAILY #30 tablet Omeprazole [PriLOSEC] 40 mg PO DAILY@0630 #60 capsule. Simvastatin [Zocor] 20 mg PO HS #30 tablet Continued Tizanidine HCl [Zanaflex] 2 mg PO TID PRN PRN Reason: Muscle Spasm Montelukast [Singulair] 10 mg PO DAILY Loratadine [Claritin] 10 mg PO DAILY Aspirin [Lo-Dose Aspirin EC] 81 mg PO DAILY Fluticasone Propionate Nasal [Flonase] 50 mcg NS DAILY Polyethylene Glycol 3350 [MiraLAX] 17 gm PO DAILY Vitamin B Complex [Balanced B-50] 1 each PO DAILY Discontinued Simvastatin [Zocor] 40 mg PO HS Lisinopril [Zestril] 10 mg PO DAILY Home Medications: Aspirin [Lo-Dose Aspirin EC] 81 mg PO DAILY 08/11/19 [History] Fluticasone Propionate Nasal [Flonase] 50 mcg NS DAILY 08/11/19 [History] Loratadine [Claritin] 10 mg PO DAILY 08/11/19 [History] Montelukast [Singulair] 10 mg PO DAILY 08/11/19 [History] Polyethylene Glycol 3350 [MiraLAX] 17 gm PO DAILY 08/11/19 [History] Tizanidine HCl [Zanaflex] 2 mg PO TID PRN 08/11/19 [History] Vitamin B Complex [Balanced B-50] 1 each PO DAILY 08/11/19 [History] Apixaban [Eliquis] 5 mg PO BID #60 tablet 08/15/19 [Rx] Amiodarone [Cordarone] 200 mg PO DAILY #30 tablet 08/16/19 [Rx] Diltiazem CD (24hr) [Cardizem CD] 120 mg PO DAILY #30 cap.er.24h 08/16/19 [Rx] Omeprazole [PriLOSEC] 40 mg PO DAILY@0630 #60 capsule. 08/16/19 [Rx] Simvastatin [Zocor] 20 mg PO HS #30 tablet 08/16/19 [Rx] Allergies/Adverse Reactions: Allergy/AdvReac Type Severity Reaction Status Date / Time No Known Allergies Allergy Verified 08/11/19 13:49 Date of admission: 08/12/19 10:58 Primary care physician: Steve Casey MD Consults: 08/11/19 17:59 Consult to Oncology [CONS] Routine Consulting Provider: On[facility] Reason for Consult: new lung mass Call Completed: No 08/12/19 08:00 Consult to Cardiology [CONS] Routine Comment: Consulting Provider: Card[facility] [place] Reason for Consult: SVT, suspect Aflutter, new Time Notified: 08:00 Call Completed: Yes 08/13/19 15:20 Consult to Gastroenterology [CONS] Routine Consulting Provider: [facility] [place] Reason for Consult: Evaluate for EV in setting ETOH use, need for AC Call Completed: Yes 08/14/19 11:16 Consult to Electrophysiology (EP) [CONS] Routine Consulting Provider: Electrophysiology [place] Reason for Consult: persistent atrial flutter Call Completed: Yes 08/14/19 16:34 Consult to Pulmonology [CONS] Routine Consulting Provider: [facility] Reason for Consult: R hilar mass needs biopsy Call Completed: Yes - Constitutional Vitals: Temp Pulse Resp BP Pulse Ox 98.5 F 75 18 101/85 96 08/16/19 07:21 08/16/19 09:32 08/16/19 09:32 08/16/19 07:21 08/16/19 09:32 Exam: General: Alert and oriented 3, not in distress Thoracic: Normal breath sounds b/l, no wheezing or crackles Cardio: Normal S1 and S2, regular rate and normal rhythm Abdomen: Soft, nontender Extremities: Warm, well perfused. DP pulses 2+ b/l. No edema Skin: Intact. No rashes, bruises, or ulcers Neuro: Awake, fully oriented. Good memory, concentration, attention. Speech fluent. - Patient Status Disposition: Home, Self-Care Condition: Fair Functional capacity at discharge: independent ambulation Overall status at discharge: patient is progressing back to baseline - Discharge Instructions Instructions: Atrial Flutter (DC), Chronic Obstructive Pulmonary Disease (DC) Follow Up With: Dinora Cyr CNP [Partnered Physician] - (Per the office they will call the patient at home with a follow up appointment) Steve Casey MD [Primary Care Provider] - 08/25/19 2:00 pm Rolando Wilhelm MD [Partnered Physician] - Amy Stevens MD [Partnered Physician] - Ana Camargo MD [Partnered Physician] - - Diet and Activity Activity: resume usual activities as tolerated Diet: low salt diet
[2019-08-16 11:20] VITALS: BP 121/74
--- NOTE | 2019-08-16 19:07 | Pulmonology Progress Note ---
Date of Encounter: 08/16/19 Time of Encounter: 11:00 Assessment and Plan (1) Lung mass Status: Acute Patient endobronchial ultrasound showed infrahilar mass. Preliminary shows poss ible non-small cell carcinoma. Patient and his was updated will follow him up next week to discuss her with results and further outpatient imaging before oncology sees him. (2) COPD (chronic obstructive pulmonary disease) with emphysema Status: Acute Patient will need outpatient evaluation for his COPD he might be a surgical candidate for his lung malignancy. Qualifiers: Emphysema type: centrilobular Qualified Code(s): J43.2 - Centrilobular emphysema Subjective Principal diagnosis: Aflutter Objective PUL Vital signs: Last Vital Signs Temp 99.2 F 08/16/19 11:19 Pulse 66 08/16/19 11:40 Resp 18 08/16/19 11:40 BP 121/74 08/16/19 11:19 Pulse Ox 93 08/16/19 11:40 General appearance: no acute distress Eyes: nonicteric ENT: oropharynx moist Effort: normal Auscultation: bilateral: clear Cardiovascular: irregular rhythm Gastrointestinal: normoactive bowel sounds Extremities: no cyanosis, no edema normal mental status, non-focal exam mood appropriate Results - Laboratory Findings CBC and BMP: 08/16/19 02:47 08/16/19 02:47 PT/INR, D-dimer PT 10.4 Seconds (9.4-12.1) 08/11/19 16:30 D-Dimer 4349 ng/mLFEU (0-500) H 08/11/19 13:33 Abnormal lab findings: Abnormal lab results RBC 3.15 M/mcL (4.19-5.50) L 08/16/19 02:47 Hgb 10.6 g/dL (12.9-16.9) L 08/16/19 02:47 Hct 31.7 % (37.5-50.1) L 08/16/19 02:47 MCV 100.6 fL (83.0-100.0) H 08/16/19 02:47 MCH 33.7 pg (28.0-33.3) H 08/16/19 02:47 RDW 15.8 % (11.5-14.5) H 08/16/19 02:47 Plt Count 132 K/mcL (140-400) L 08/16/19 02:47 MPV 12.5 fL (9.4-12.4) H 08/15/19 00:47 D-Dimer 4349 ng/mLFEU (0-500) H 08/11/19 13:33 Heparin Anti-Xa, Unfract 0.86 IU/mL (0.30-0.70) H 08/15/19 19:07 Potassium 3.4 mEq/L (3.5-5.1) L 08/16/19 02:47 Chloride 108 mEq/L (98-107) H 08/15/19 00:47 Carbon Dioxide 20 mEq/L (23-29) L 08/15/19 00:47 BUN 24 mg/dL (8-23) H 08/13/19 08:36 BUN/Creatinine Ratio 27 (6-26) H 08/13/19 08:36 Glucose 116 mg/dL (70-105) H 08/13/19 08:36 POC Glucose 113 mg/dL (70-99) H 08/13/19 05:56 Calcium 8.3 mg/dL (8.6-10.3) L 08/16/19 02:47 Magnesium 1.5 mg/dL (1.6-2.6) L 08/15/19 00:47 Direct Bilirubin 0.3 mg/dL (0.0-0.2) H 08/15/19 00:47 AST 50 Units/L (13-39) H 08/15/19 00:47 Troponin I 0.05 ng/mL (< 0.04) H* 08/12/19 00:26 B-Natriuretic Peptide 296 pg/mL (Less than 100) H 08/12/19 00:26 Serum Total Protein 5.8 g/dL (6.4-8.9) L 08/15/19 00:47 Globulin 2.3 g/dL (2.4-3.5) L 08/15/19 00:47 HDL Cholesterol 85 mg/dL (40-59) H 08/12/19 00:26 Fluid Appearance Cloudy (Clear) A 08/15/19 11:03 - Microbiology Findings Microbiology Findings: Microbiology, Last 48 Hours 08/15/19 11:03 Respiratory Culture - Preliminary Right Lower Lobe Lung 08/15/19 11:03 Fungal Culture - Preliminary Right Lower Lobe Lung Culture is incubating. - Clinical Findings Intake & Output: Intake & Output 08/16/19 08/16/19 08/16/19 07:59 15:59 23:59 Intake Total 0 / 410 410 / 410 Balance 0 / 410 410 / 410 Weight 95.8 kg Consult Discharge Plan - Plan Instructions: Atrial Flutter (DC), Chronic Obstructive Pulmonary Disease (DC) Referrals: Rolando Wilhelm MD [Partnered Physician] - Amy Stevens MD [Partnered Physician] - Dinora Cyr CNP [Partnered Physician] - (Per the office they will call the patient at home with a follow up appointment) Ana Camargo MD [Partnered Physician] - Steve Casey MD [Primary Care Provider] - 08/25/19 2:00 pm Prescriptions: Diltiazem CD (24hr) [Cardizem CD] 120 mg PO DAILY #30 cap.er.24h Prescription Printed Amiodarone [Cordarone] 200 mg PO DAILY #30 tablet Prescription Printed Apixaban [Eliquis] 5 mg PO BID #60 tablet Prescription Printed Omeprazole [PriLOSEC] 40 mg PO DAILY@0630 #60 capsule.dr Prescription Printed Simvastatin [Zocor] 20 mg PO HS #30 tablet Prescription Printed
== END 2019-08-16 13:05 | disposition home or self-care (01) | DRG 264 ==
LOC: SUATTDRO → EMEROOARM 12:54 → 2NENU 12:54 → SUATTDRO 17:19 → 2NENU 18:05 → ICNU 08-12 01:40 → SUATTDRO 08-12 10:58 → 2NNU 08-13 03:27
PROVIDERS: ADMIT Internal Medicine; ATTEND Internal Medicine
PROC: ENDOBRF (2019-08-15 17:30)

== ENCOUNTER 2019-08-22 06:01 | Observation (INO) ==
[2019-08-22] MEDS ORDERED: tiZANidine 4 MG TABLET PO PRN (09:13)
[2019-08-22] MEDS ORDERED: Fluticasone Propionate Nasal 50 MCG/SPRAY BOTTLE NS SCH (09:15)
[2019-08-22] MEDS ORDERED: Albuterol 2.5 MG/3 ML NEBULIZER IH PRN (09:32)
[2019-08-22] MEDS: Diltiazem CD (24hr) 120 MG CAPSULE PO SCH (10:02)
[2019-08-22] MEDS: *HR* Amiodarone 200 MG TABLET PO SCH (10:02)
[2019-08-22] MEDS: Ringers Solution, Lactated 1,000 ML IVC SCH (10:02)
[2019-08-22] MEDS: Pantoprazole 40 MG VIAL IVP SCH ×2 (10:03→17:29)
[2019-08-22 10:37] LABS: Hematocrit 29.1 % (37.5-50.1); Hemoglobin 9.4 g/dL (12.9-16.9)
[2019-08-22 10:50] LABS: INR 1.2; Prothrombin Time 13.1 Seconds (9.4-12.1)
[2019-08-22 10:57] LABS: BUN/Creatinine Ratio 23 (6-26); Blood Urea Nitrogen 25 mg/dL (8-23); Calcium 8.5 mg/dL (8.6-10.3); Carbon Dioxide 26 mEq/L (23-29); Chloride 110 mEq/L (98-107); Glucose 120 mg/dL (70-105); Osmolality,Calculated 290 (280-300); Sodium 137 mEq/L (136-145); eGFR For African Americans > 60 (> 60); eGFR For Non-African Americans > 60 (> 60)
[2019-08-22] MEDS ORDERED: Lidocaine -MPF 2% 2 ML VIAL ONE (11:31)
[2019-08-22] MEDS ORDERED: Propofol 500 MG/50 ML INFUS..BTL ONE (11:35)
[2019-08-22] MEDS ORDERED: Ondansetron 4 MG/2 ML VIAL ONE (11:36)
[2019-08-22] MEDS ORDERED: *HR* PHENYLEPHRINE 1,000 MCG/10 ML SYRINGE IVP ONE ×2 (12:17→12:38)
[2019-08-22] MEDS ORDERED: 0.9 % Sodium Chloride 1,000 ML IVC SCH (14:30)
[2019-08-22 17:23] LABS: Hematocrit 25.3 % (37.5-50.1); Hemoglobin 8.3 g/dL (12.9-16.9)
[2019-08-22] MEDS: Fluticasone Propionate Nasal 50 MCG/SPRAY BOTTLE NS SCH (19:42)
[2019-08-23 02:34] LABS: Basophils # 0.1 K/mcL (0.0-0.2); Basophils % 0.7 %; Eosinophils # 0.1 K/mcL (0.0-0.6); Eosinophils % 1.3 %; Hematocrit 24.4 % (37.5-50.1); Hematocrit 24.5 % (37.5-50.1); Hemoglobin 7.7 g/dL (12.9-16.9); Hemoglobin 7.8 g/dL (12.9-16.9); Immature Granulocytes % 0.4 % (0-4); Lymphocytes # 2.3 K/mcL (0.6-4.6); Lymphocytes % 24.9 %; Mean Corpuscular HGB Conc 31.4 g/dL (31.6-35.5); Mean Corpuscular Hemoglobin 32.8 pg (28.0-33.3); Mean Corpuscular Volume 104.3 fL (83.0-100.0); Mean Platelet Volume 10.9 fL (9.4-12.4); Neutrophils # 5.7 K/mcL (1.6-8.9); Platelet Count 256 K/mcL (140-400); Red Blood Count 2.35 M/mcL (4.19-5.50); Red Cell Distribution Width 15.1 % (11.5-14.5); Segmented Neutrophils % 61.7 %; White Blood Count 9.2 K/mcL (4.3-11.1)
[2019-08-23 02:52] LABS: BUN/Creatinine Ratio 17 (6-26); Blood Urea Nitrogen 19 mg/dL (8-23); Carbon Dioxide 25 mEq/L (23-29); Chloride 110 mEq/L (98-107); Glucose 113 mg/dL (70-105); Osmolality,Calculated 283 (280-300); Sodium 135 mEq/L (136-145); eGFR For African Americans > 60 (> 60); eGFR For Non-African Americans > 60 (> 60)
[2019-08-23] MEDS: Ringers Solution, Lactated 1,000 ML IVC SCH (04:24)
[2019-08-23] MEDS: Pantoprazole 40 MG VIAL IVP SCH ×2 (05:56→18:24)
[2019-08-23] MEDS: Loratadine 10 MG TABLET PO SCH (07:35)
[2019-08-23] MEDS: *HR* Amiodarone 200 MG TABLET PO SCH (07:35)
[2019-08-23] MEDS: Diltiazem CD (24hr) 120 MG CAPSULE PO SCH (07:35)
[2019-08-23 09:51] LABS: Hematocrit 24.2 % (37.5-50.1); Hemoglobin 7.7 g/dL (12.9-16.9)
[2019-08-23 17:27] LABS: Hematocrit 23.2 % (37.5-50.1); Hemoglobin 7.4 g/dL (12.9-16.9)
[2019-08-23] MEDS: Fluticasone Propionate Nasal 50 MCG/SPRAY BOTTLE NS SCH (20:18)
[2019-08-24 00:22] LABS: Hematocrit 24.1 % (37.5-50.1); Hemoglobin 7.8 g/dL (12.9-16.9)
[2019-08-24 05:05] LABS: Hematocrit 23.6 % (37.5-50.1); Hemoglobin 7.6 g/dL (12.9-16.9)
[2019-08-24 05:20] LABS: BUN/Creatinine Ratio 15 (6-26); Blood Urea Nitrogen 16 mg/dL (8-23); Calcium 8.6 mg/dL (8.6-10.3); Carbon Dioxide 25 mEq/L (23-29); Chloride 106 mEq/L (98-107); Glucose 96 mg/dL (70-105); Osmolality,Calculated 287 (280-300); Potassium 4.2 mEq/L (3.5-5.1); Sodium 138 mEq/L (136-145); eGFR For African Americans > 60 (> 60); eGFR For Non-African Americans > 60 (> 60)
[2019-08-24] MEDS: Pantoprazole 40 MG VIAL IVP SCH (05:43)
[2019-08-24 07:41] VITALS: BP 116/67
[2019-08-24] MEDS: Diltiazem CD (24hr) 120 MG CAPSULE PO SCH (07:44)
[2019-08-24] MEDS: Loratadine 10 MG TABLET PO SCH (07:44)
[2019-08-24] MEDS: *HR* Amiodarone 200 MG TABLET PO SCH (07:44)
== END 2019-08-24 11:00 | disposition home or self-care (01) ==
LOC: 2NNU → SUATTDRO 07:58
PROVIDERS: ADMIT Internal Medicine; ATTEND Internal Medicine

== ENCOUNTER 2021-09-07 09:38 | Observation (INO) ==
[2021-09-07] MEDS ORDERED: CeFAZolin Syr 2,000MG/20 ML 2,000 MG/20 ML SYRINGE IVPB ONE (10:22)
[2021-09-07] MEDS ORDERED: *HR* FentaNYL (PF) 100 MCG/2 ML VIAL ONE (10:50)
[2021-09-07] MEDS ORDERED: Ondansetron 4 MG/2 ML VIAL ONE (10:50)
[2021-09-07] MEDS ORDERED: Lidocaine HCL 4 ML Topical Solution (Laryng-O-Jet Kit Sterile Pak) TP ONE (10:50)
[2021-09-07] MEDS ORDERED: *HR* Propofol 200 MG/20 ML VIAL IVP ONE (10:50)
[2021-09-07] MEDS ORDERED: *HR* HYDROmorphone 2 MG TABLET PO PRN (11:12)
[2021-09-07] MEDS ORDERED: *HR* Labetalol 20 MG/4 ML SYRINGE IVP PRN (11:12)
[2021-09-07] MEDS ORDERED: Acetaminophen IV 1,000 MG/100 ML BAG IVPB ONE (11:12)
[2021-09-07] MEDS ORDERED: Famotidine 20 MG/2 ML VIAL IVP ONE (11:12)
[2021-09-07] MEDS ORDERED: Ipratropium/Albuterol Neb 3 ML IH ONE (11:28)
[2021-09-07] MEDS ORDERED: *HR* Etomidate 40 MG/20 ML VIAL IVP ONE (11:42)
[2021-09-07] MEDS ORDERED: *HR* Vasopressin 20 UNIT/ML VIAL ONE (12:09)
[2021-09-07] MEDS ORDERED: *HR* HYDROcodone/Acet 5/325 mg TABLET PO PRN ×2 (12:51→18:20)
[2021-09-07] MEDS ORDERED: Lidocaine -MPF 2% 5 ML VIAL ONE (13:02)
[2021-09-07] MEDS: *HR* OxyCODONE Immed Rel 5 MG TABLET PO PRN ×2 (13:09→14:59)
[2021-09-07] MEDS: *HR* HYDROmorphone (PF) 1 MG/ML SYRINGE IVP PRN ×3 (13:24→13:59)
[2021-09-07] MEDS ORDERED: *HR* Belladonna Alkaloids/Opium 30 MG RECTAL SUPPOSITORY RC ONE (13:28)
[2021-09-07] MEDS: Ringers Solution, Lactated 1,000 ML IVC SCH (18:18)
[2021-09-07] MEDS ORDERED: Acetaminophen 325 MG TABLET PO PRN (18:20)
[2021-09-07] MEDS ORDERED: *HR* OxyCODONE Immed Rel 5 MG TABLET PO PRN (18:20)
[2021-09-07] MEDS ORDERED: Ondansetron 4 MG/2 ML VIAL IVP PRN (18:20)
[2021-09-07] MEDS ORDERED: Naloxone 0.4 MG/ML INJ IVP PRN (18:20)
[2021-09-07] MEDS ORDERED: *HR* Belladonna Alkaloids/Opium 30 MG RECTAL SUPPOSITORY RC PRN (18:20)
[2021-09-07] MEDS: 0.9 % Sodium Chloride 1,000 ML IVC SCH (18:32)
[2021-09-08] MEDS: Ringers Solution, Lactated 1,000 ML IVC SCH (00:54)
[2021-09-08 07:44] VITALS: TEMP 98.3
[2021-09-08] MEDS: 0.9 % Sodium Chloride 1,000 ML IVC SCH (08:32)
[2021-09-08 11:09] VITALS: BP 102/60; PULSE 80; O2SAT 93
== END 2021-09-08 14:19 | disposition home or self-care (01) ==
LOC: SAMDAY 09:38 → 3BNU 09:38
PROVIDERS: ADMIT Urology; ATTEND Urology

== ENCOUNTER 2021-12-21 17:17 | Inpatient (IN) ==
[2021-12-21 20:17] LABS: Basophils % 0.2 %; Eosinophils % 0.2 %; Hemoglobin 7.3 g/dL (12.9-16.9); Immature Granulocytes % 0.4 % (0-4); Lymphocytes # 0.7 K/mcL (0.6-4.6); Lymphocytes % 12.8 %; Mean Corpuscular HGB Conc 30.4 g/dL (31.6-35.5); Mean Corpuscular Hemoglobin 28.5 pg (28.0-33.3); Mean Corpuscular Volume 93.8 fL (83.0-100.0); Mean Platelet Volume 9.4 fL (9.4-12.4); Monocytes # 0.4 K/mcL (0.0-1.3); Monocytes % 7.1 %; Neutrophils # 4.2 K/mcL (1.6-8.9); Platelet Count 231 K/mcL (140-400); Red Blood Count 2.56 M/mcL (4.19-5.50); Red Cell Distribution Width 17.7 % (11.5-14.5); Segmented Neutrophils % 79.3 %; White Blood Count 5.2 K/mcL (4.3-11.1)
[2021-12-21 20:28] LABS: INR 1.2; Prothrombin Time 13.4 Seconds (9.4-12.1)
[2021-12-21 20:31] LABS: Activated Partial Thrombo Time 30.6 Seconds (26.0-36.0)
[2021-12-21 20:55] LABS: Troponin I 0.04 ng/mL (< 0.04)
[2021-12-21 21:02] LABS: Alanine Aminotransferase 13 Units/L (7-52); Albumin 3.7 g/dL (3.5-5.7); Albumin/Globulin Ratio 1.4 (1.1-2.2); Alkaline Phosphatase 62 Units/L (34-104); Aspartate Amino Transferase 23 Units/L (13-39); BUN/Creatinine Ratio 31 (6-26); Bilirubin,Total 0.3 mg/dL (0.3-1.0); Blood Urea Nitrogen 33 mg/dL (8-23); Calcium 8.3 mg/dL (8.6-10.3); Carbon Dioxide 27 mEq/L (23-29); Chloride 103 mEq/L (98-107); Globulin 2.7 g/dL (2.4-3.5); Glucose 95 mg/dL (70-105); Osmolality,Calculated 291 (280-300); Potassium 4.8 mEq/L (3.5-5.1); Sodium 137 mEq/L (136-145); Total Protein 6.4 g/dL (6.4-8.9); eGFR For African Americans > 60 (> 60); eGFR For Non-African Americans > 60 (> 60)
[2021-12-21 21:19] LABS: Influenza A PCR Negative (Negative); Influenza B PCR Negative (Negative); Resp. Syncytial Virus PCR Negative (Negative)
[2021-12-21 21:31] LABS: SARS-CoV-2 by PCR (In House) Negative (Negative)
[2021-12-21] MEDS ORDERED: Isovue-370 500 ML BOTTLE IVP ONE (21:34)
[2021-12-22] MEDS ORDERED: Naloxone 0.4 MG/ML INJ IVP PRN (01:32)
[2021-12-22] MEDS ORDERED: Ondansetron ODT 4 MG TAB.RAPDIS SL PRN (01:32)
[2021-12-22] MEDS ORDERED: *HR* OxyCODONE Immed Rel 5 MG TABLET PO PRN (01:32)
[2021-12-22] MEDS ORDERED: *HR* HYDROcodone/Acet 5/325 mg TABLET PO PRN (01:32)
[2021-12-22] MEDS ORDERED: Melatonin 3 MG TABLET PO PRN ×2 (01:32→16:06)
[2021-12-22] MEDS ORDERED: Acetaminophen 325 MG TABLET PO PRN (01:32)
[2021-12-22 06:39] LABS: INR 1.1; Prothrombin Time 11.8 Seconds (9.4-12.1)
[2021-12-22 06:42] LABS: Activated Partial Thrombo Time 28.1 Seconds (26.0-36.0)
[2021-12-22 07:39] LABS: Adenovirus Not Detected (Not Detect); Bordetella Pertussis Not Detected (Not Detect); Chlamydophila pneumoniae Not Detected (Not Detect); Coronavirus 229E Not Detected (Not Detect); Coronavirus HKU1 Not Detected (Not Detect); Coronavirus NL63 Not Detected (Not Detect); Coronavirus OC43 Not Detected (Not Detect); Human Metapneumovirus Not Detected (Not Detect); Human Rhinovirus/Enterovirus Not Detected (Not Detect); Influenza A Subtype 2009 H1 Not Detected (Not Detect); Influenza B Not Detected (Not Detect); Mycoplasma pneumoniae Not Detected (Not Detect); Parainfluenza Virus 1 Not Detected (Not Detect); Parainfluenza Virus 2 Not Detected (Not Detect); Parainfluenza Virus 3 Not Detected (Not Detect); Parainfluenza Virus 4 Not Detected (Not Detect); Respiratory Syncytial Virus Not Detected (Not Detect); SARS-CoV-2 Not Detected (Not Detect)
[2021-12-22 09:58] LABS: eGFR For African Americans > 60 (> 60); eGFR For Non-African Americans > 60 (> 60)
[2021-12-22 12:11] LABS: Appearance of Pleural Fl Clear (Clear); Basophils,Pleural Fluid 0 %; Eosinophils,Pleural Fluid 0 %
[2021-12-22 12:39] LABS: Total Protein,Pleural Fluid 2.4 g/dL
[2021-12-22 12:50] LABS: % Iron Saturation 39 % (20-55); Iron 153 mcg/dL (65-175); Transferrin 281 mg/dL (203-362)
[2021-12-22 13:09] LABS: Ferritin 21 ng/mL (20-250)
[2021-12-22] MEDS ORDERED: Ipratropium/Albuterol Neb 3 ML IH PRN (16:04)
[2021-12-22] MEDS ORDERED: tiZANidine 4 MG TABLET PO PRN (16:14)
[2021-12-22] MEDS ORDERED: Iron Sucrose Complex 200 MG in 0.9 % Sodium Chloride 100 ML IVPB ONE (16:14)
[2021-12-22] MEDS: levoFLOXacin 750 MG/150 ML 750 MG/150 ML BAG IVPB SCH (18:03)
[2021-12-22] MEDS: traZODone 50 MG TABLET PO SCH (21:28)
[2021-12-22] MEDS: polyethylene glycoL 3350 17 GM POWD.PACK PO SCH (21:35)
[2021-12-23 01:36] LABS: Basophils % 0.2 %; Eosinophils % 0.7 %; Hematocrit 22.3 % (37.5-50.1); Hemoglobin 6.8 g/dL (12.9-16.9); Immature Granulocytes % 0.5 % (0-4); Lymphocytes # 0.7 K/mcL (0.6-4.6); Mean Corpuscular HGB Conc 30.5 g/dL (31.6-35.5); Mean Corpuscular Hemoglobin 28.5 pg (28.0-33.3); Mean Corpuscular Volume 93.3 fL (83.0-100.0); Mean Platelet Volume 10.1 fL (9.4-12.4); Monocytes # 0.1 K/mcL (0.0-1.3); Monocytes % 2.3 %; Neutrophils # 5.1 K/mcL (1.6-8.9); Platelet Count 210 K/mcL (140-400); Red Blood Count 2.39 M/mcL (4.19-5.50); Red Cell Distribution Width 17.6 % (11.5-14.5); Segmented Neutrophils % 85.3 %
[2021-12-23 01:58] LABS: BUN/Creatinine Ratio 29 (6-26); Blood Urea Nitrogen 31 mg/dL (8-23); Calcium 7.7 mg/dL (8.6-10.3); Carbon Dioxide 28 mEq/L (23-29); Chloride 103 mEq/L (98-107); Glucose 96 mg/dL (70-105); Osmolality,Calculated 290 (280-300); Potassium 4.6 mEq/L (3.5-5.1); Sodium 137 mEq/L (136-145); eGFR For African Americans > 60 (> 60); eGFR For Non-African Americans > 60 (> 60)
[2021-12-23 02:16] LABS: Folate 14.3 ng/mL (3.0-16.0)
[2021-12-23] MEDS: predniSONE 20 MG TABLET PO SCH (07:42)
[2021-12-23] MEDS: DilTIAZem CD (24hr) 120 MG CAP.ER.24H PO SCH (07:42)
[2021-12-23] MEDS: Cholecalciferol (D-3) 1,000 UNIT (25MCG) TABLET PO SCH (07:42)
[2021-12-23] MEDS: Vitamin B Complex/Vit C/Vit E 1 EACH TABLET PO SCH (07:42)
[2021-12-23] MEDS: levoFLOXacin 750 MG/150 ML 750 MG/150 ML BAG IVPB SCH (07:43)
[2021-12-23] MEDS: *HR* Amiodarone 200 MG TABLET PO SCH (07:43)
[2021-12-23 08:43] LABS: Hematocrit 22.6 % (37.5-50.1); Hemoglobin 6.6 g/dL (12.9-16.9)
[2021-12-23] MEDS ORDERED: 0.9 % Sodium Chloride 250 ML ONE (10:03)
[2021-12-23 16:28] LABS: Hematocrit 25.3 % (37.5-50.1); Hemoglobin 7.6 g/dL (12.9-16.9)
[2021-12-23] MEDS: traZODone 50 MG TABLET PO SCH (20:18)
[2021-12-23] MEDS: polyethylene glycoL 3350 17 GM POWD.PACK PO SCH (20:18)
[2021-12-24 08:27] LABS: Hematocrit 24.3 % (37.5-50.1); Hemoglobin 7.7 g/dL (12.9-16.9)
[2021-12-24] MEDS: Vitamin B Complex/Vit C/Vit E 1 EACH TABLET PO SCH (08:40)
[2021-12-24] MEDS: levoFLOXacin 750 MG/150 ML 750 MG/150 ML BAG IVPB SCH (08:41)
[2021-12-24] MEDS: predniSONE 20 MG TABLET PO SCH (08:41)
[2021-12-24] MEDS: Cholecalciferol (D-3) 1,000 UNIT (25MCG) TABLET PO SCH (08:41)
[2021-12-24] MEDS: *HR* Amiodarone 200 MG TABLET PO SCH (08:41)
[2021-12-24] MEDS: DilTIAZem CD (24hr) 120 MG CAP.ER.24H PO SCH (08:41)
[2021-12-24] MEDS: polyethylene glycoL 3350 17 GM POWD.PACK PO SCH (19:37)
[2021-12-24] MEDS: traZODone 50 MG TABLET PO SCH (19:41)
[2021-12-25 06:04] LABS: Hematocrit 24.4 % (37.5-50.1); Hemoglobin 7.7 g/dL (12.9-16.9)
[2021-12-25 07:43] VITALS: PULSE 74; TEMP 97.8
[2021-12-25] MEDS: Vitamin B Complex/Vit C/Vit E 1 EACH TABLET PO SCH (08:25)
[2021-12-25] MEDS: Cholecalciferol (D-3) 1,000 UNIT (25MCG) TABLET PO SCH (08:25)
[2021-12-25] MEDS: predniSONE 20 MG TABLET PO SCH (08:25)
[2021-12-25] MEDS: *HR* Amiodarone 200 MG TABLET PO SCH (08:25)
[2021-12-25] MEDS: DilTIAZem CD (24hr) 120 MG CAP.ER.24H PO SCH (08:25)
[2021-12-25] MEDS: levoFLOXacin 750 MG/150 ML 750 MG/150 ML BAG IVPB SCH (08:26)
[2021-12-25 08:30] VITALS: BP 102/54
[2021-12-25 11:06] VITALS: O2SAT 99
== END 2021-12-25 12:15 | disposition home health service (06) | DRG 180 ==
LOC: EMEROOARM 17:17 → 2ANU 17:17 → OBSVTOIN 12-22 01:28 → SUATTDRO 12-22 01:28 → 2ANU 12-22 03:27
PROVIDERS: ADMIT Internal Medicine; ATTEND Internal Medicine